=== PATIENT | female | born 1965 | race Caucasian/White ===

== ENCOUNTER 2020-09-06 15:24 | Inpatient (IN) | payer OTHER, SELFPAY ==
[2020-09-06] VITALS (7 sets, daily range): BP systolic 118–135; BP diastolic 77–80; PULSE 18–97; RESP 18–22; TEMP 36.4–36.7; O2SAT 81–97; BMI 36.4
--- NOTE | ~2020-09-06 | XR_ITS ---
EXAMINATION: XR chest 1V portable INDICATION: Hypoxia, chest tube insertion TECHNIQUE: Portable AP chest at 0515 hours COMPARISON: 0409 hours FINDINGS: A second left sided chest tube has been inserted which courses towards the left lung apex t hen curves inferiorly in the medial aspect of the left hemithorax. The previously described left-side d pneumothorax is no longer evident. There is increase in the amount of subcutaneous gas in the left chest wall. Diffuse opacities of the lungs persist without significant change. There is no pleural ef fusion. The endotracheal tube ends 3.3 cm above the eric. The nasogastric tube is in the stomach. A right upper extremity PICC ends with its tip in the distal superior vena cava. There is stable cardi omegaly. IMPRESSION: 1. Second left chest tube insertion with resolution of the previously described pneumothorax. 2. Diffuse lung disease, consistent with pneumonia and/or pulmonary edema and/or acute respiratory di stress syndrome (ARDS). Reviewed, dictated and finalized at location A. BURNER IMPRESSION: 1. Second left chest tube insertion with resolution of the previously described pneumothorax. 2. Diffuse lung disease, consistent with pneumonia and/or pulmonary edema and/o r acute respiratory distress syndrome (ARDS).
--- NOTE | ~2020-09-06 | XR_ITS ---
EXAMINATION: XR chest 1V portable DATE: 09/11/2020 06:23 INDICATION: Respiratory failure. COVID-19 pneumonia. TECHNIQUE: A single frontal view of the chest was obtained. COMPARISON: Chest single view 09/10/2020 FINDINGS: Again seen is elevation of right hemidiaphragm. There is a diffuse interstitial pattern in the lungs. No pleural effusion or pneumothorax. The heart size is normal. A right upper extremity per ipherally inserted central venous catheter (PICC) is seen with tip at the superior cavoatrial junctio n. IMPRESSION: 1. Stable diffuse interstitial pattern in the lungs, consistent with atypical pneumonia versus pulmon eduardo edema versus acute respiratory distress syndrome (ARDS). Reviewed, dictated and finalized at location A. ED MILK MASHER IMPRESSION: 1. Stable diffuse interstitial pattern in the lungs, consistent with atypical p neumonia versus pulmonary edema versus acute respiratory distress syndrome (BLAYNE S).
--- NOTE | ~2020-09-06 | XR_ITS ---
EXAMINATION: XR chest 1V portable EXAM DATE: 09/15/2020 02:02 INDICATION: Respiratory failure. COVID-19 TECHNIQUE: Portable AP frontal chest x-ray was obtained. Comparison is made to prior examination from 09/14/2020. FINDINGS: Endotracheal tube tip is 4 centimeters above the eric (ideal range is between 2 to 5 cm). Feeding tube is in position. There is a right-sided PICC line in position. Moderate-sized left-sided pneumothorax. Moderate amount of bilateral ill-defined acute airspace disea se. There are no sizable pleural effusions. Cardiomediastinal silhouette is normal. The bones and soft tissues are unremarkable. Compared to previous examination, the pneumothorax has developed. The airspace disease appears unchan ged. IMPRESSION: 1. Development of moderate size left-sided pneumothorax. 2. Moderate amount of ill-defined acute airspace disease, clinical correlation. STAT RAD radiologist phoned, discussed this case with clinician as per documentation in their report, which was faxed and scanned into PACS with this exam. Reviewed, dictated and finalized at location A. HERIZATION CREW LEADER IMPRESSION: 1. Development of moderate size left-sided pneumothorax. 2. Moderate amount of ill-defined acute airspace disease, clinical correlation . STAT RAD radiologist phoned, discussed this case with clinician as per document ation in their report, which was faxed and scanned into PACS with this exam.
--- NOTE | ~2020-09-06 | XR_ITS ---
EXAMINATION: XR chest 1V portable EXAM DATE: 09/13/2020 06:21 INDICATION: Respiratory failure. TECHNIQUE: Portable AP frontal chest x-ray was obtained. Comparison is made to prior examination from 09/12/2020, 09/11/2020. FINDINGS: Endotracheal tube tip is 2 centimeters above the eric (ideal range is between 2 to 5 cm). There is a right-sided PICC line with tip projecting over the cavoatrial junction. There is a nasoga stric tube seen with tip collimated off the study, but below the left hemidiaphragm. There is segmental left lower lobe retrocardiac consolidation. Less well-defined opacities and lower lung zones bilaterally. Likely acute process, clinical correlation. There are no sizable pleural eff usions. There is no pneumothorax suspected. Cardiomediastinal silhouette is normal. The bones an d soft tissues are unremarkable. There is no significant interval change compared to prior exam. IMPRESSION: 1. Tubes, line in position. 2. Lower lobe ill-defined opacities, probably edema and/or pneumonia. PHALOGRAPHER Reviewed, dictated and finalized at location A.
--- NOTE | ~2020-09-06 | XR_ITS ---
EXAMINATION: XR abdomen NG/feed tube insert EXAM DATE: 09/14/2020 13:05 INDICATION: og tube insertion . TECHNIQUE: Frontal projection(s) of the abdomen for interpretation. Comparison is made to prior exami nation from 09/11/2020. FINDINGS: Feeding tube is in position. The upper abdominal bowel gas pattern is nonobstructive. There is no organomegaly. IMPRESSION: Feeding tube in position. Reviewed, dictated and finalized at location A. EY MORTISER OPERATOR IMPRESSION: Feeding tube in position.
--- NOTE | ~2020-09-06 | XR_ITS ---
EXAMINATION: XR chest 1V portable INDICATION: Respiratory failure TECHNIQUE: Portable AP chest at 0525 hours COMPARISON: 09/08/2020 FINDINGS: Diffuse bilateral patchy opacities throughout all lung zones persist without significant ch juliet. A right upper extremity PICC ends with its tip in the distal superior vena cava. The cardiomedi astinal silhouette is normal. There is no pleural effusion or pneumothorax. IMPRESSION: 1. Stable diffuse lung disease, consistent with pneumonia and/or pulmonary edema and/or acute respira tory distress syndrome (ARDS). Reviewed, dictated and finalized at location A. ST PRODUCTS GATHERER IMPRESSION: 1. Stable diffuse lung disease, consistent with pneumonia and/or pulmonary luís a and/or acute respiratory distress syndrome (ARDS).
--- NOTE | ~2020-09-06 | XR_ITS ---
EXAMINATION: XR chest 1V portable DATE: 09/06/2020 16:01 INDICATION: COVID 19 positive presenting with shortness of breath and chest pain TECHNIQUE: frontal view of the chest was obtained. COMPARISON: Chest radiograph dated 07/06/2015 FINDINGS: Elevation of the right hemidiaphragm. Patchy airspace opacities throughout the right lung and in the left mid and lower lung zones. No pleural effusion or pneumothorax. The cardiomediastinal silhouette is normal. Visualized bones and soft tissues are unremarkable. IMPRESSION: 1. Patchy bilateral airspace disease consistent with pneumonia with differential including pulmonary edema. Reviewed, dictated and finalized at location A. ATIENT SCHEDULER IMPRESSION: 1. Patchy bilateral airspace disease consistent with pneumonia with differentia l including pulmonary edema.
--- NOTE | ~2020-09-06 | XR_ITS ---
EXAMINATION: XR chest 1V portable EXAM DATE: 09/12/2020 06:21 INDICATION: Respiratory failure. TECHNIQUE: Portable AP frontal chest x-ray was obtained. Comparison is made to prior examination from 09/11/2020. FINDINGS: Endotracheal tube tip is 1.8 centimeters above the eric (ideal range is between 2 to 5 cm ). There is a right-sided PICC line with tip projecting over the cavoatrial junction. There is segmental left lower lobe retrocardiac consolidation. Less well-defined opacities and lower lung zones bilaterally. Likely acute process, clinical correlation. There are no sizable pleural eff usions. There is no pneumothorax suspected. The cardiomediastinal silhouette is prominent but mag nified on this AP technique. The bones and soft tissues are unremarkable. There is no significant interval change compared to prior exam. IMPRESSION: 1. ET tube 1.8 cm above eric. 2. Left lower lobe consolidation, other basilar groundglass opacities. Probably edema and/or pneumon ia. Reviewed, dictated and finalized at location A. PASTER IMPRESSION: 1. ET tube 1.8 cm above eric. 2. Left lower lobe consolidation, other basilar groundglass opacities. Probabl y edema and/or pneumonia.
--- NOTE | ~2020-09-06 | XR_ITS ---
EXAMINATION: XR chest-chest tube insert/pos EXAM DATE: 09/15/2020 03:57 INDICATION: Chest Tube Insertion . COVID-19 pneumonia. Respiratory failure. TECHNIQUE: Portable AP frontal chest x-ray was obtained. Comparison is made to prior examination from 09/15, 09/14/2020. FINDINGS: There is a left-sided chest tube. Endotracheal tube tip is 4 centimeters above the eric ( ideal range is between 2 to 5 cm). Feeding tube is in position. There is a right-sided PICC line in position. Moderate amount of bilateral ill-defined acute airspace disease. There is no pneumothorax suspected. There are no sizable pleural effusions. Cardiomediastinal silhouette is normal. The bones and so ft tissues are unremarkable. Compared to previous examination, chest tube has been inserted and the pneumothorax has resolved. The re is gas in the left axilla. Mild progression in the airspace disease of the left lung which could b e progression of pneumonia or some superimposed atelectasis. IMPRESSION: 1. Resolution of left pneumothorax following chest tube insertion. 2. Moderate amount of ill-defined acute airspace disease, clinical correlation. Reviewed, dictated and finalized at location A. AR CARE TECHNICIAN IMPRESSION: 1. Resolution of left pneumothorax following chest tube insertion. 2. Moderate amount of ill-defined acute airspace disease, clinical correlation .
--- NOTE | ~2020-09-06 | XR_ITS ---
EXAMINATION: XR chest 1V portable INDICATION: Respiratory failure TECHNIQUE: Portable AP chest at 0549 hours COMPARISON: 09/09/2020 FINDINGS: Patchy opacities persist throughout all lung zones without significant change. A right uppe r extremity PICC ends with its tip in the distal superior vena cava. There is unchanged mild elevatio n of the left hemidiaphragm. The cardiomediastinal silhouette is stable. No pleural effusion or pneum othorax is identified. IMPRESSION: 1. Stable diffuse lung disease, consistent with pneumonia and/or pulmonary edema and/or acute respira tory distress syndrome (ARDS). Reviewed, dictated and finalized at location A. UATE CIVIL ENGINEER IMPRESSION: 1. Stable diffuse lung disease, consistent with pneumonia and/or pulmonary luís a and/or acute respiratory distress syndrome (ARDS).
--- NOTE | ~2020-09-06 | US_ITS ---
EXAMINATION: US right upper quadrant EXAM DATE: 09/07/2020 10:59 INDICATION: Elevated liver enzymes. TECHNIQUE: Multiple grayscale and Doppler images of the abdomen right upper quadrant were obtained (b y a technologist who performed the scan) and subsequently reviewed. There is no prior study for jonathan rogers. FINDINGS: The pancreatic head and body are normal in appearance. The pancreatic tail is not visualized. There is echogenic liver parenchyma, hepatic steatosis. There are no focal liver lesions identified. Th ere is no evidence of intrahepatic biliary duct dilation. Portal venous flow was seen in the hepatop edal, normal direction and has normal Doppler waveform. No right-sided hydronephrosis. Common bile duct measures 3 mm, which is normal. The gallbladder wall is normal in thickness, with ex pected amount of distention. No sonographic evidence of pericholecystic fluid. There is no cholelit hiases. Technologist performing exam reports patient did not demonstrate sonographic Laura's sign. Please note that this sign is less reliable in patients who have received pain medication. IMPRESSION: 1. Hepatic steatosis. Reviewed, dictated and finalized at location B. GRAPHER IMPRESSION: 1. Hepatic steatosis.
--- NOTE | ~2020-09-06 | XR_ITS ---
EXAMINATION: XR chest 1V portable INDICATION: New left chest tube placement TECHNIQUE: Portable AP chest at 0409 hours COMPARISON: 09/16/2020 FINDINGS: A left chest tube is seen with its tip coursing towards the left lung apex. A moderate size d left pneumothorax is present. There are diffuse interstitial and airspace opacities throughout the lungs which have not significantly changed. No pleural effusion is identified. The endotracheal tube ends 3.5 cm above the eric. The nasogastric tube is in the stomach. A right upper extremity PICC en ds with its tip in the midsuperior vena cava. Subcutaneous gas in the left chest wall is consistent w ith chest tube insertion. IMPRESSION: 1. Moderate-sized left pneumothorax. Additional chest tube has been inserted at the time of interpret ation. 2. Diffuse lung disease, consistent with pneumonia and/or pulmonary edema and/or acute respiratory di stress syndrome (ARDS). Reviewed, dictated and finalized at location A. RIOR DESIGN PROFESSOR IMPRESSION: 1. Moderate-sized left pneumothorax. Additional chest tube has been inserted at the time of interpretation. 2. Diffuse lung disease, consistent with pneumonia and/or pulmonary edema and/o r acute respiratory distress syndrome (ARDS).
--- NOTE | ~2020-09-06 | XR_ITS ---
EXAMINATION: XR chest 1V portable EXAM DATE: 09/16/2020 06:37 INDICATION: COVID-19 pneumonia. Respiratory failure. TECHNIQUE: Portable AP frontal chest x-ray was obtained. Comparison is made to prior examination from 09/15, 09/14/2020. FINDINGS: There is a left-sided chest tube without pleural reflection, no evidence of pneumothorax on this portable image. Endotracheal tube tip is 3 centimeters above the eric (ideal range is between 2 to 5 cm). There is a nasogastric tube seen with tip collimated off the study, but below the left hemidiaphragm. There is a right-sided PICC line in position. Moderate amount of bilateral ill-defined acute airspace disease. There are no sizable pleural effus ions. Cardiomediastinal silhouette is normal. The bones and soft tissues are unremarkable. Compared to prior study, there may be slight retraction of the left-sided chest tube. Airspace diseas e looks unchanged. IMPRESSION: 1. Probable slight retraction of chest tube, side port still overlying pleural cavity. No evidence p neumothorax. 2. Moderate amount of ill-defined acute airspace disease, clinical correlation. Reviewed, dictated and finalized at location A. ISION JIG GRINDER IMPRESSION: 1. Probable slight retraction of chest tube, side port still overlying pleural cavity. No evidence pneumothorax. 2. Moderate amount of ill-defined acute airspace disease, clinical correlation .
--- NOTE | ~2020-09-06 | XR_ITS ---
EXAMINATION: XR chest 1V portable INDICATION: Respiratory failure TECHNIQUE: Portable AP chest at 0553 hours COMPARISON: 09/06/2020 FINDINGS: There are patchy opacities throughout all lung zones without significant change. The cardio mediastinal silhouette is stable. There is no pleural effusion or pneumothorax. A right upper extremi ty PICC has been inserted which ends with its tip in the distal superior vena cava. IMPRESSION: 1. Stable diffuse lung disease, consistent with pneumonia and/or pulmonary edema and/or acute respira tory distress syndrome (ARDS). Reviewed, dictated and finalized at location A. ITY TECHNICIAN FIBERGLASS IMPRESSION: 1. Stable diffuse lung disease, consistent with pneumonia and/or pulmonary luís a and/or acute respiratory distress syndrome (ARDS).
--- NOTE | ~2020-09-06 | XR_ITS ---
EXAMINATION: XR chest ET placement EXAM DATE: 09/14/2020 13:05 INDICATION: reintubation . Respiratory failure. TECHNIQUE: Portable AP frontal chest x-ray was obtained. Comparison is made to prior examination from earlier same date. FINDINGS: Endotracheal tube tip is 3 centimeters above the eric (ideal range is between 2 to 5 cm). There is a right-sided PICC line with tip projecting over the cavoatrial junction. There is a nasoga stric tube seen with tip collimated off the study, but below the left hemidiaphragm. There is segmental left lower lobe retrocardiac consolidation. Less well-defined opacities and lower lung zones bilaterally. Likely acute process, clinical correlation. There are no sizable pleural eff usions. There is no pneumothorax suspected. Cardiomediastinal silhouette is normal. The bones an d soft tissues are unremarkable. There is no significant interval change compared to prior exam. IMPRESSION: 1. Tubes, line in position. 2. Bilateral edema and/or pneumonia. ORATION PILOT Reviewed, dictated and finalized at location A.
--- NOTE | ~2020-09-06 | XR_ITS ---
EXAMINATION: XR chest 1V portable EXAM DATE: 09/14/2020 06:30 INDICATION: Respiratory failure. TECHNIQUE: Portable AP frontal chest x-ray was obtained. Comparison is made to prior examination from 09/13, 09/12/2020, 09/11/2020. FINDINGS: Endotracheal tube tip is 2-3 centimeters above the eric (ideal range is between 2 to 5 cm ). There is a right-sided PICC line with tip projecting over the cavoatrial junction. There is a naso gastric tube seen with tip collimated off the study, but below the left hemidiaphragm. There is segmental left lower lobe retrocardiac consolidation. Less well-defined opacities and lower lung zones bilaterally. Likely acute process, clinical correlation. There are no sizable pleural eff usions. There is no pneumothorax suspected. Cardiomediastinal silhouette is normal. The bones an d soft tissues are unremarkable. There is no significant interval change compared to prior exam. IMPRESSION: 1. Tubes, line in position. 2. Bilateral edema and/or pneumonia. URE RELAMPER Reviewed, dictated and finalized at location A.
--- NOTE | ~2020-09-06 | XR_ITS ---
EXAMINATION: XR abdomen NG/feed tube insert DATE: 09/11/2020 08:56 INDICATION: Orogastric tube placement. TECHNIQUE: A semiupright view of the abdomen was obtained. COMPARISON: None. FINDINGS: The lower abdomen is excluded. There are no dilated loops of bowel. The nasogastric tube ti p is in the stomach. A right upper extremity peripherally inserted central venous catheter (PICC) is seen with tip at the superior cavoatrial junction. IMPRESSION: 1. Nasogastric tube tip in the stomach. Reviewed, dictated and finalized at location A. NEHOUSE BRAKEMAN
--- NOTE | ~2020-09-06 | XR_ITS ---
EXAMINATION: XR chest ET placement DATE: 09/11/2020 08:56 INDICATION: Intubation. TECHNIQUE: A single frontal view of the chest was obtained. COMPARISON: Chest single view 09/11/2020 at 5:47 AM FINDINGS: There is a diffuse interstitial pattern in the lungs. There are worsened airspace opacities at left lung base. No pleural effusion or pneumothorax. The heart size is normal. The endotracheal t ube tip is 1.8 cm above the eric. The nasogastric tube tip is in the stomach. A right upper extremi ty peripherally inserted central venous catheter (PICC) is seen with tip at the superior cavoatrial j unction. IMPRESSION: 1. Diffuse lung disease with worsening at left lung base, consistent with pneumonia versus pulmonary edema versus acute respiratory distress syndrome (ARDS). Reviewed, dictated and finalized at location A. NATAL INSTRUCTOR IMPRESSION: 1. Diffuse lung disease with worsening at left lung base, consistent with pneum onia versus pulmonary edema versus acute respiratory distress syndrome (ARDS).
--- NOTE | 2020-09-06 15:36 | ECG_ITS ---
Measurements Intervals [place] Rate: 93 P: 11 ND: 168 QRS: -28 QRSD: 86 T: 17 QT: 330 QTc: 411 Interpretive Statements SINUS RHYTHM POOR R WAVE PROGRESSION, ANTERIOR LEADS BASELINE WANDER- I, II, III, AVL, AVF, V1, V6 BORDERLINE ECG Electronically Signed On 09-06-2020 16:24:49 FURNACE ROOM SUPERVISOR by Luís Kim D.O.
[2020-09-06 15:57] LABS: Hematocrit 40.5 % (37.0-47.0); Hemoglobin 13.5 g/dL (12.0-15.0); Red Blood Count 4.59 M/mm3 (4.2-5.4); White Blood Count 5.4 K/mm3 (4.5-10.0)
[2020-09-06 15:58] LABS: Basophils Percent Auto 0.2 % (0.2-1.2); Immature Granulocyte Absolute 0.03 K/mm3 (0.00-0.031); Immature Granulocyte Percent A 0.6 % (0-0.5); Lymphocytes Absolute Auto 1.38 K/mm3 (0.9-3.2); Lymphocytes Percent Auto 25.6 % (18.3-44.2); Mean Corpuscular HGB Conc 33.3 g/dl (32-36); Mean Corpuscular Hemoglobin 29.4 pg (26-34); Mean Corpuscular Volume 88.2 fl (80-100); Mean Platelet Volume 9.3 fl (7.4-10.4); Monocytes Absolute Auto 0.2 K/mm3 (0.1-0.6); Monocytes Percent Auto 3.1 % (2.6-8.5); Neutrophils Absolute Auto 3.8 K/mm3 (1.3-6.7); Neutrophils Percent Auto 70.5 % (45.5-73.1); Platelet Count Result 185 k/mm3 (150-375); Red Cell Distribution Width 13.1 % (11.5-14.5)
--- NOTE | 2020-09-06 16:05 | ED.SOB ---
HPI - SOB/Dyspnea General Chief Complaint: Shortness of Breath/Dyspnea Stated Complaint: chest pain, covid + yesterday Time Seen by Provider: 09/06/20 16:02 Source: patient Mode of arrival: ambulatory Limitations: no limitations History of Present Illness HPI Narrative: Patient is a 55-year-old previously healthy female who presents for evaluation of worsening shortness of breath. Patient states that she became symptomatic 3 days ago, with fever to 103 Fahrenheit, dry cough and shortness of breath. Patient states she works at [employer], no recent Covid exposures that she knows of. Patient had a test performed at a [employer] on Saturday, was made aware of her positive Covid results today. Has had worsening shortness of breath, denies any fever or cough today. Denies loss of taste or smell. States her shortness of breath worsens when she is lying flat. Denies severe myalgias. Patient does not smoke. She denies other medical conditions. Related Data Allergies Allergy/AdvReac Type Severity Reaction Status Date / Time No Known Allergies Allergy Verified 09/06/20 16:41 Review of Systems Review of Systems: Narrative: CONSTITUTIONAL: Reports fever and chills EYES: Denies discharge. ENT: Denies rhinorrhea, congestion, sore throat, or otalgia. CARDIOVASCULAR: Denies current chest pain or edema RESPIRATORY: Denies cough, reports shortness of breath GASTROINTESTINAL: Denies abdominal pain, nausea, vomiting, or diarrhea. GENITOURINARY: Denies dysuria or hematuria. SKIN: Denies rash or itching. MUSCULOSKELETAL: Denies back pain, joint pain, or myalgia. NEUROLOGIC: Denies headache, numbness, or weakness. Exam Narrative: Exam Narrative: GENERAL: Awake, alert, conversant HEAD: Normocephalic, atraumatic. EYES: PERRLA and EOMI. ENT: Nares clear, no rhinorrhea or epistaxis. Mucous membranes moist. NECK: Supple. CHEST: No respiratory distress, breathing even and non labored, oxygen saturations 81% on room air, borderline tachypnea HEART: Regular rate, sinus rhythm ABDOMEN:Non distended, non tender EXTREMITIES: Normal range of motion. No edema. SKIN: Warm, dry, no rash. NEURO:No focal deficits. Alert and oriented x3 Course Vital Signs Vital signs: Vital Signs Temperature 36.6 C 09/06/20 15:40 Pulse Rate 91 09/06/20 15:40 Respiratory Rate 20 09/06/20 15:40 Blood Pressure 135/80 09/06/20 15:40 Pulse Oximetry 81 L 09/06/20 15:40 Temperature 36.7 C 09/06/20 18:44 Pulse Rate 91 09/06/20 18:44 Respiratory Rate 22 H 09/06/20 18:44 Blood Pressure 129/79 09/06/20 18:44 Pulse Oximetry 96 09/06/20 18:44 MDM - SOB/Dyspnea MDM Narrative Medical decision making narrative: Patient with confirmed Covid positive test result, here with worsening dyspnea. At the time of assessment, ABCs are intact, vital signs notable for hypoxemia, 81% on room air. No severe increased work of breathing. Patient is denying current chest pain for me. EKG without acute ischemic changes. Blood pressure and heart rate are stable. Patient does not meet sepsis criteria based on these. No severe leukocytosis. She does have elevation in inflammatory markers. No elevation in troponin. Chest x-ray consistent with Covid, viral pneumonia. Patient given IV dexamethasone per treatment protocol. No anticoagulation given at this time. Patient will be admitted to the medical/surgical floor at this point is not requiring high flow nasal cannula. Patient with guarded prognosis, spoke with hospitalist regarding case, agrees on medsurg placement. Asked to withhold antibiotics given viral pneumonia. Patient admitted in stable condition. Differential Diagnosis Differential diagnosis: Likely acute exacerbation of chronic obstructive airways disease, community acquired pneumonia and pulmonary embolism Medical Records Attestation: I reviewed the patient's medical records. Lab Data Attestation: I reviewed the patient's lab results. Result diag
[2020-09-06 16:08] LABS: Anion Gap 10 mmol/L (8-16); Blood Urea Nitrogen 24 mg/dL (7-17); Carbon Dioxide 24 mmol/L (22-30); Chloride 106 mmol/L (98-107); Estimated CRCL calculation 56 ml/min; Estimated Glomerular Filt Rate 57; Glucose 131 mg/dL (65-105); Potassium 3.6 mmol/L (3.4-5.0); Sodium 140 mmol/L (137-145)
[2020-09-06 16:27] LABS: Alveolar/Arterial O2 Gradient 91.2 mmHg; Base Excess ABG -2.9 mEq/l (+/-2.0); Carboxyhemoglobin 0.8 % THb (0-2.0); Device NASAL CANNULA; Fractional Inspired Oxygen 32 %; HCO3 ABG 21.2 mEq/l (22.0-26.0); Methemoglobin ABG 0.2 %THb (0-1.5); Modified Allen's Test Pass; Oxygen Content ABG 18.6 %vol (16.0-22.0); Oxygen Saturation ABG 97.4 % (95.0-100.0); Oxyhemoglobin 96.1 % THb (90.0-100.0); PCO2 ABG 34.9 mmHg (35.0-45.0); PO2 ABG 96.1 mmHg (80.0-100.0); Reduced Hemoglobin 2.9 %THb (0-5.0); Site Drawn RIGHT RADIAL; Total Hemoglobin 13.7 g/dL (12.0-18.0); pH ABG 7.401 (7.350-7.450)
[2020-09-06 16:29] LABS: INR 0.9; Prothrombin Time 12.4 Seconds (11.1-14.7)
[2020-09-06 16:30] LABS: Lactate Dehydrogenase 1686 U/L (313-618); Partial Thromboplastin Time 32.8 SECONDS (22.3-36.8)
[2020-09-06 16:31] LABS: Lactic Acid Reflex 1.6 mmol/L (0.7-2.1)
[2020-09-06 16:37] LABS: NT Pro B Type Natriuretic Pept 102 PG/ML (5-100); Troponin I < 0.012 ng/mL (0.000-0.034)
[2020-09-06 16:40] LABS: CRP 19.7 mg/dL (<1.0)
--- NOTE | 2020-09-06 19:51 | ADMGEN ---
This patient, Petty Germain, was admitted to [facility] Surg Room 329-01. Patient/family oriented to hospital policies and general routines including ID bracelet, bed and alarms, visiting hours, pain management, procedures, bathroom and other care routines, personal items, smoking policy, room service/diet, and visiting hours. Information on how to activate the Rapid Response Team has been discussed. Patient/Family are encouraged to report perceived risks to care and to ask questions if they do not understand what they are told or what they should do.
--- NOTE | 2020-09-06 20:13 | PM.IMHP ---
H&P: HPI History of Present Illness Date/Time: 09/06/20 20:13 Chief complaint: COVID 19/hypoxic respiratory failure Narrative: Petty Germain is a 55 year old female with past medical history hyperlipidemia and obesity presents to the ED with chief complaint of shortness of breath, fever. History was taken with assistance with hat body inspector service [place]. Symptom onset was 09/02/2020 with T-max 103, dry cough and dyspnea. COVID-19 test positive 09/04/2020 from [employer]. She was trying to manage her fever with Tylenol and ibuprofen at home. She works [employer] and interacts with customers, she also go shopping [employer] and [employer]. does not have any known sick contacts. She lives alone. Her daughter lives in [place]. Patient has seen a PCP year ago, but does not have 1 now. In the ED: Chest x-ray patchy bilateral airspace disease consistent with pneumonia. EKG normal sinus rhythm rate 93. ferritin 1340, LDH 1686, CRP 19.7. patient was 81% on room air and then put on oxygen decreasing 96%. patient admitted to medical floor for acute hypoxic respiratory failure, COVID-19. Review of Systems Review of Systems: Narrative: Constitutional: endorses fever and chills ENT/Mouth: No Hearing Changes, No Ear Pain, No Nasal Congestion, No Sinus Pain, No Hoarseness, No sore throat, No Rhinorrhea, No Swallowing Difficulty Eyes: No Eye Pain, No Redness, No Vision Changes Cardiovascular: No Palpitations, No Dyspnea on Exertion, No Orthopnea, No Claudication, No Edema Respiratory: Endorses dyspnea, dry cough, chest pain associated with cough Gastrointestinal: No Nausea, No Vomiting, No Diarrhea, No Constipation, No Abdominal Pain, No Heartburn, No Hematochezia, No Melena Genitourinary: No Dysuria, No Urinary Frequency, No Hematuria, No Urinary Incontinence, No Urgency Musculoskeletal: No Arthralgias, No Myalgias, No Joint Swelling, No Joint Stiffness, No Back Pain Skin: No Skin Lesions, No Pruritis, No Hair Changes Neuro: No Weakness, No Numbness, No Paresthesias, No Loss of Consciousness, No Syncope, No Dizziness, No Headache Psych: No Anxiety/Panic, No Depression, No Insomnia Heme: No Bruising, No Bleeding Lymph: No Adenopathy Endocrine: No Polyuria, No Polydipsia, No Temperature Intolerance REPLACED BY [facility] Past Medical History Medical History (Updated 09/06/20 @ 20:57 by Beny Morgan DO) Hyperlipidemia Obesity (BMI 30.0-34.9) Family History Family History (Updated 09/06/20 @ 20:58 by Beny Morgan DO) Mother Alcoholism Social History Social History (Updated 09/06/20 @ 20:58 by Beny Morgan DO) Social History: Daughter lives in [facility] Smoking status: Never smoker Alcohol intake: never Substance use: never Living arrangements: alone Occupation/Education: occupation Additional occupation/education comments: works at [employer] Spiritual care concerns: No Meds Home Medications and Allergies Home Medications Medication Instructions Recorded Confirmed Type No Home Medications 09/06/20 09/06/20 History Allergies Allergy/AdvReac Type Severity Reaction Status Date / Time No Known Allergies Allergy Verified 09/06/20 16:41 Vital Signs Vital Signs - 24 hr 09/06/20 15:40 09/06/20 15:43 09/06/20 17:14 Temperature 36.6 C 36.6 C Pulse Rate 91 92 92 Respiratory Rate 20 18 Blood Pressure 135/80 133/77 Pulse Oximetry 81 L 97 09/06/20 18:44 09/06/20 19:25 Temperature 36.7 C Pulse Rate 91 18 L Respiratory Rate 22 H 20 Blood Pressure 129/79 Pulse Oximetry 96 97 Exam Narrative: Exam Narrative: - GENERAL: pleasant obese woman breathing comfortably on 6 L oxygen - EYES: EOMI. Anicteric. - HENT: Moist mucous membranes. No scleral icterus. - LUNGS: coarse lung sounds throughout, slightly diminished, no wheezing - CARDIOVASCULAR: Regular rate and rhythm. No murmur. No JVD. - ABDOMEN: Soft, non-tender and non-distended. No palpable masses. -
[2020-09-06 22:29] LABS: Alanine Aminotransferase 164 U/L (4-35)
[2020-09-06] MEDS: REMDESIVIR 200 MG/NS 250 ML 200 MG/250 ML BAG 250 MG IVPB (23:14)
[2020-09-06] MEDS: ENOXAPARIN 40 MG/0.4 ML SYRINGE SUB-Q (23:14)
[2020-09-07] VITALS (22 sets, daily range): BP systolic 107–150; BP diastolic 70–96; PULSE 66–90; RESP 18–35; TEMP 36–38; O2SAT 80–97
[2020-09-07 01:30] LABS: Alveolar/Arterial O2 Gradient 633.3 mmHg; Base Excess ABG -2.6 mEq/l (+/-2.0); Fractional Inspired Oxygen 100 %; HCO3 ABG 21.1 mEq/l (22.0-26.0); Oxyhemoglobin 81.9 % THb (90.0-100.0); PCO2 ABG 33.8 mmHg (35.0-45.0); PO2 FiO2 Ratio Arterial Blood 0.46 %; Total Hemoglobin 13.9 g/dL (12.0-18.0); pH ABG 7.414 (7.350-7.450)
[2020-09-07 01:36] LABS: Device HIGH FLOW NASAL CANN; Modified Allen's Test Pass; PO2 ABG 45.9 mmHg (80.0-100.0); Site Drawn RIGHT RADIAL
--- NOTE | 2020-09-07 01:54 | PC.NURSE ---
This patient, Petty Germain, was received from [ [facility]] on 09/07/20 at 0145. Patient/family oriented to unit policies and routines
[2020-09-07 03:57] LABS: Hematocrit 39.1 % (37.0-47.0); Hemoglobin 13.1 g/dL (12.0-15.0); Mean Corpuscular HGB Conc 33.5 g/dl (32-36); Mean Corpuscular Hemoglobin 29.8 pg (26-34); Mean Corpuscular Volume 88.9 fl (80-100); Mean Platelet Volume 9.9 fl (7.4-10.4); Platelet Count Result 196 k/mm3 (150-375); Red Cell Distribution Width 12.9 % (11.5-14.5); White Blood Count 4.8 K/mm3 (4.5-10.0)
[2020-09-07 04:16] LABS: Alanine Aminotransferase 159 U/L (4-35); Anion Gap 7 mmol/L (8-16); Blood Urea Nitrogen 22 mg/dL (7-17); Calcium 8.9 mg/dL (8.4-10.2); Carbon Dioxide 28 mmol/L (22-30); Chloride 107 mmol/L (98-107); Estimated CRCL calculation 80 ml/min; Estimated Glomerular Filt Rate > 60; Glucose 178 mg/dL (65-105); Potassium 4.4 mmol/L (3.4-5.0); Sodium 142 mmol/L (137-145)
[2020-09-07] MEDS: ACETAMINOPHEN 325 MG TABLET 650 MG PO ×2 (04:57→20:22)
--- NOTE | 2020-09-07 08:39 | WPDCNINT ---
Assessment and Plan Assessment and plan (1) Acute respiratory disease due to COVID-19 virus: Code(s): U07.1 - COVID-19; J06.9 - Acute upper respiratory infection, unspecified Status: Acute Assessment and Plan: acute hypoxic respiratory failure secondary to COVID-19 SARS-CoV-2 PCR positive from [facility] 09/03/2020 patient currently on 90% FiO2 and 25 L flow high-flow nasal cannula. I will try to switch patient to AirVo to provide higher flow. patient maintaining saturation and not in respiratory distress at this time but has deteriorated pretty quickly since admission and is at high risk of getting further worse and getting intubated Patient is in Airborne, Droplet and Contact Isolation Continue Remdesivir - patient's ALT is elevated which could be secondary to fatty liver. Closely monitor levels Continue dexamethasone Convalscent plasma is ordered BNP unremarkable Monitor inflammatory markers Up in chair and incentive spirometry to minimize atelectasis Bronchodilators Pt is on zinc, vitamin c and d (2) Hyperlipidemia: Code(s): E78.5 - Hyperlipidemia, unspecified Status: Acute Assessment and Plan: hold statin due to elevated liver enzymes (3) Elevated liver enzymes: Code(s): R74.8 - Abnormal levels of other serum enzymes Status: Acute Assessment and Plan: most likely secondary to fatty liver from obesity check right upper quadrant ultrasound Additional Plan Diet: Regular DVT prophylaxis: intermediate does lovenox 40mg BID for COVID 19. Check D-dimer Code status: patient wishes to be Full code. I tried calling patient's daughter on both phone numbers listed in the chart and left message on voicemail Total Critical Care Time - 30 minutes Due to a high probability of clinically significant, life threatening deterioration, the patient required my highest level of preparedness to intervene emergently and I personally spent this critical care time directly and personally managing the patient. This critical care time included obtaining a history; examining the patient; pulse oximetry; ordering and review of studies; arranging urgent treatment with development of a management plan; evaluation of patient's response to treatment; frequent reassessment; and discussions with other providers. It was exclusive of separately billable procedures and treating other patients and teaching time. Please see Assessment and Plan section and the rest of the note for further information on patient assessment and treatment Senior Engineering Manager Consult Note Consult date: 09/07/20 Time Seen: 08:00 HPI: Petty Germain is a 55 year old female with history of hyperlipidemia who presented to ED yesterday for evaluation of worsening shortness of breath. Patient states that she became symptomatic 3 days ago, with fever , dry cough and shortness of breath. Patient states she works at [employer], no recent Covid exposures that she knows of. Patient had a test performed at [facility] on 09/03, was made aware of her positive Covid results today which was positive. Has had worsening shortness of breath, denies any fever or cough today. Denies loss of taste or smell. Chest x-ray showed diffuse bilateral airspace disease and she had significantly elevated CRP ferritin and LDH levels patient was admitted to floor yesterday evening and was initially on nasal can but overnight her oxygen requirement increased and she had to be transferred ICU. This morning patient is on high-flow nasal can with 90% FiO2 and 25 L flow. she does admit to having shortness of breath and occasional cough but denies any other complaints at this time. She states she is feeling better this morning as compared to last night. Patient denies fever, chest pain, nausea, vomiting, abdominal pain, diarrhea, headache or constipation. Review of Systems Review of Systems: All systems reviewed & are unremarkable except as noted in
[2020-09-07] MEDS: CHOLECALCIFEROL 1,000 UNITS TABLET 4000 UNITS PO (08:42)
[2020-09-07] MEDS: ASCORBIC ACID 500 MG TABLET PO (08:42)
[2020-09-07] MEDS: ZINC SULFATE 220 MG CAPSULE PO (08:42)
[2020-09-07] MEDS: DEXAMETHASONE 2 MG TABLET 6 MG PO (08:43)
[2020-09-07] MEDS: ALBUTEROL SULFATE (*SP) AEROSOL 1 PUFF 2 PUFF INHALATION ×5 (09:00→20:45)
[2020-09-07] MEDS: ENOXAPARIN 40 MG/0.4 ML SYRINGE SUB-Q ×2 (10:00→20:24)
[2020-09-07] MEDS: FAMOTIDINE 20 MG TABLET PO ×2 (10:00→20:24)
[2020-09-07] MEDS: TUBING, BLOOD PLUM PUMP TUBING 1 EACH XX (10:55)
[2020-09-07] MEDS: SODIUM CHLORIDE 0.9% IV 250 ML 30 ML IV CONT (10:55)
[2020-09-07] MEDS: LIDOCAINE HCL 1% PF INJ 5 ML VIAL INFILTRATE (12:00)
[2020-09-07] MEDS: CENTRAL LINE FLUSH 10 ML IV PUSH ×2 (13:20→20:25)
[2020-09-07] MEDS: FUROSEMIDE INJ 40 MG/4 ML VIAL 20 MG IV PUSH (13:20)
--- NOTE | 2020-09-07 16:34 | PM.IMPN ---
Progress Note: A&P Assessment and Plan (1) COVID-19: Code(s): U07.1 - COVID-19 Status: Acute Assessment and Plan: -Started on iv Remdesivir, dexamethasone 6mg daily - MDI: albuterol - incentive spirometry - starting supplements zinc, vitamin c and d (2) Respiratory failure, acute: Qualifiers: Respiratory failure complication: hypoxia Qualified Code(s): J96.01 - Acute respiratory failure with hypoxia Code(s): J96.00 - Acute respiratory failure, unspecified whether with hypoxia or hypercapnia Status: Acute Assessment and Plan: High flow oxygen continue to watch for improvement in respiratory status (3) Obesity (BMI 30.0-34.9): Code(s): E66.9 - Obesity, unspecified Status: Chronic Assessment and Plan: Adviced to loose weight Subjective Date/time seen: 09/07/20 16:34 Interval history: Petty Germain is a 55 year old female with past medical history hyperlipidemia and obesity presents to the ED with chief complaint of shortness of breath, fever. COVID-19 test positive 09/04/2020 from [facility] for respiratory failure on iv remdesivir and oral steroids. Pt speaks Armenian. Review of Systems Review of Systems: All systems reviewed & are unremarkable except as noted in HPI and below Exam Narrative: Exam Narrative: Pleasant obese woman in mild distress on high flow oxygen Objective Data Vital Signs Vital Signs: Vital Signs - 24 hr 09/06/20 17:14 09/06/20 18:44 09/06/20 19:25 Temperature 36.6 C 36.7 C Pulse Rate 92 91 18 L Respiratory Rate 18 22 H 20 Blood Pressure 133/77 129/79 Pulse Oximetry 97 96 97 09/06/20 19:50 09/06/20 20:00 09/07/20 00:00 Temperature 36.4 C 37.6 C H Pulse Rate 97 85 Respiratory Rate 20 20 Blood Pressure 118/80 121/70 Pulse Oximetry 90 91 88 L 09/07/20 01:45 09/07/20 02:00 09/07/20 02:05 Temperature 37.3 C Pulse Rate 90 90 Respiratory Rate 35 H 27 H Blood Pressure 144/79 H 135/78 Pulse Oximetry 80 L 89 L 90 09/07/20 04:00 09/07/20 04:57 09/07/20 05:57 Temperature 38.0 C H 38.0 C H 37.9 C H Pulse Rate 85 Respiratory Rate 29 H Blood Pressure 124/76 Pulse Oximetry 91 09/07/20 06:00 09/07/20 08:00 09/07/20 09:00 Temperature 37.9 C H 36.9 C Pulse Rate 82 78 88 Respiratory Rate 18 22 H 20 Blood Pressure 120/72 107/75 Pulse Oximetry 93 91 90 09/07/20 10:00 09/07/20 10:50 09/07/20 11:03 Temperature 36.0 C L 36.6 C Pulse Rate 79 72 78 Respiratory Rate 20 32 H 30 H Blood Pressure 139/83 139/83 129/96 H Pulse Oximetry 95 91 91 09/07/20 11:05 09/07/20 12:00 09/07/20 14:00 Temperature 36.6 C 36.0 C L Pulse Rate 70 86 81 Respiratory Rate 30 H 32 H 24 H Blood Pressure 129/96 H 149/87 H 131/92 H Pulse Oximetry 91 93 94 09/07/20 16:00 Temperature 36.1 C L Pulse Rate 85 Respiratory Rate 31 H Blood Pressure 150/87 H Pulse Oximetry 92 Intake/Output Intake/Output: Intake & Output 09/04/20 09/05/20 09/06/20 09/07/20 23:59 23:59 23:59 23:59 Intake Total 625 Output Total 800 Balance -175 Meds/Results Medications: Active Medications Generic Name Dose Route Start Last Admin Trade Name Freq PRN Reason Stop Dose Admin Acetaminophen 650 mg 09/06/20 17:06 09/07/20 04:57 Acetaminophen 325 Mg Tablet PO 650 mg Q4H PRN Administration Mild Pain (1-3) or Fever Albuterol 2 puff 09/06/20 20:00 09/07/20 11:45 Albuterol Sulfate (*Sp) Aerosol 1 Puff INHALATION 2 puff QIDRT DOLORES Administration Albuterol 2 puff 09/07/20 00:33 Albuterol Sulfate (*Sp) Aerosol 1 Puff INHALATION QIDRT PRN Shortness Of Breath Ascorbic Acid 500 mg 09/07/20 09:00 09/07/20 08:42 Ascorbic Acid 500 Mg Tablet PO 500 mg DAILY DOLORES Administration Dexamethasone 6 mg 09/07/20 08:00 09/07/20 08:43 Dexamethasone 2 Mg Tablet PO 09/16/20 08:01 6 mg DAILY@0800 DOLORES Administration Enoxaparin Sodium 40 mg 09/06/20
[2020-09-07] MEDS: ALBUTEROL SULFATE (*SP) INHALER 1 PUFF (17:46)
[2020-09-07] MEDS: guaiFENesin/DEXTROMETHORPHAN 10 ML UDC PO (20:24)
[2020-09-07] MEDS: REMDESIVIR 100 MG/NS 250 ML 100 MG/250 ML BAG 250 MG IVPB (21:30)
[2020-09-08] VITALS (18 sets, daily range): BP systolic 114–147; BP diastolic 69–89; PULSE 55–77; RESP 18–28; TEMP 36.4–37.2; O2SAT 90–99
[2020-09-08 06:25] LABS: Hematocrit 37.7 % (37.0-47.0); Hemoglobin 12.6 g/dL (12.0-15.0); Mean Corpuscular HGB Conc 33.4 g/dl (32-36); Mean Corpuscular Hemoglobin 29.2 pg (26-34); Mean Corpuscular Volume 87.3 fl (80-100); Mean Platelet Volume 9.8 fl (7.4-10.4); Platelet Count Result 290 k/mm3 (150-375); Red Blood Count 4.32 M/mm3 (4.2-5.4); Red Cell Distribution Width 13.1 % (11.5-14.5); White Blood Count 11.2 K/mm3 (4.5-10.0)
[2020-09-08 06:37] LABS: Alanine Aminotransferase 109 U/L (4-35); Albumin Level 3.6 g/dL (3.5-5.1); Alkaline Phosphatase 70 U/L (38-126); Anion Gap 10 mmol/L (8-16); Aspartate Amino Transferase 81 U/L (14-36); Bilirubin,Total 0.4 mg/dL (0.2-1.3); Blood Urea Nitrogen 30 mg/dL (7-17); Calcium 8.9 mg/dL (8.4-10.2); Carbon Dioxide 28 mmol/L (22-30); Chloride 105 mmol/L (98-107); D Dimer 0.66 ug/mL (<0.48); Estimated CRCL calculation 80 ml/min; Estimated Glomerular Filt Rate > 60; Glucose 173 mg/dL (65-105); Magnesium 2.4 mg/dL (1.6-2.3); Potassium 3.6 mmol/L (3.4-5.0); Sodium 143 mmol/L (137-145)
[2020-09-08] MEDS: CENTRAL LINE FLUSH 10 ML IV PUSH ×3 (08:20→20:58)
[2020-09-08] MEDS: ZINC SULFATE 220 MG CAPSULE PO (08:20)
[2020-09-08] MEDS: CHOLECALCIFEROL 1,000 UNITS TABLET 4000 UNITS PO (08:20)
[2020-09-08] MEDS: ASCORBIC ACID 500 MG TABLET PO (08:20)
[2020-09-08] MEDS: FAMOTIDINE 20 MG TABLET PO ×2 (08:20→20:57)
[2020-09-08] MEDS: DEXAMETHASONE 2 MG TABLET 6 MG PO (08:20)
[2020-09-08] MEDS: ENOXAPARIN 40 MG/0.4 ML SYRINGE SUB-Q ×2 (08:20→20:57)
[2020-09-08] MEDS: ALBUTEROL SULFATE (*SP) AEROSOL 1 PUFF 2 PUFF INHALATION ×4 (08:45→21:10)
--- NOTE | 2020-09-08 13:22 | WPDINTPN ---
Progress Note: A&P Assessment and Plan (1) Acute respiratory disease due to COVID-19 virus: Code(s): U07.1 - COVID-19; J06.9 - Acute upper respiratory infection, unspecified Status: Acute Assessment and Plan: acute hypoxic respiratory failure secondary to COVID-19 SARS-CoV-2 PCR positive from [facility] 09/03/2020 patient currently on 90% FiO2 and 60 L flow AirVo and supplemental non-rebreather mask. patient maintaining saturation in mid 90s and not in respiratory distress at this time but but may still deteriorate and need intubation Patient is in Airborne, Droplet and Contact Isolation Continue Remdesivir - patient's ALT is elevated which could be secondary to fatty liver. Closely monitor levels as they are decreasing Continue dexamethasone Convalscent plasma 1 unit given 09/07 with Lasix BNP unremarkable Monitor inflammatory markers Up in chair and incentive spirometry to minimize atelectasis Bronchodilators Pt is on zinc, vitamin c and d Encouraged pt to try proning (2) Hyperlipidemia: Code(s): E78.5 - Hyperlipidemia, unspecified Status: Acute Assessment and Plan: hold statin due to elevated liver enzymes (3) Elevated liver enzymes: Code(s): R74.8 - Abnormal levels of other serum enzymes Status: Acute Assessment and Plan: most likely secondary to fatty liver from obesity Right upper quadrant ultrasound showed hepatic steatosis levels improving Additional Plan Diet: Advance DVT prophylaxis: intermediate does lovenox 40mg BID for COVID 19. Code status: patient wishes to be Full code. Total Critical Care Time - 33 minutes Due to a high probability of clinically significant, life threatening deterioration, the patient required my highest level of preparedness to intervene emergently and I personally spent this critical care time directly and personally managing the patient. This critical care time included obtaining a history; examining the patient; pulse oximetry; ordering and review of studies; arranging urgent treatment with development of a management plan; evaluation of patient's response to treatment; frequent reassessment; and discussions with other providers. It was exclusive of separately billable procedures and treating other patients and teaching time. Please see Assessment and Plan section and the rest of the note for further information on patient assessment and treatment Subjective Date/time seen: 09/08/20 13:22 Overnight events reviewed. Afebrile Continues to be on High-flow nasal cannula and non-rebreather mask. She did sit in a chair yesterday She states occasional shortness of breath episodes and also pain in the chest with deep breathing or coughing. Complains of coughing intermittently Vitals acceptable Review of Systems Review of Systems: All systems reviewed & are unremarkable except as noted in HPI and below (HPI) Exam Narrative: Exam Narrative: General: Pt is alert awake and in NAD Lungs/Chest: Trachea central Clear BS B/L, few basilar crackles, no wheezing, no respiratory distress or use of accessory muscles Cardiac: RRR. Normal S1 S2. No murmurs Circulation: Pedal pulses are intact and symmetrical. Abdomen: Normal bowel sounds.. obese Soft. NT. ND. Extremities: No clubbing, cyanosis or edema. Warm : Niño in place Neurologic: Follows commands. Moves all 4 extremities PERRL Skin: No Rash Objective Data Vital Signs Vital Signs: Vital Signs - 24 hr 09/07/20 14:00 09/07/20 16:00 09/07/20 18:00 Temperature 36.1 C L Pulse Rate 81 89 78 Respiratory Rate 24 H 31 H 19 Blood Pressure 131/92 H 150/87 H 120/81 Pulse Oximetry 94 93 97 09/07/20 20:00 09/07/20 20:22 09/07/20 21:02 Temperature 37.8 C H 37.8 C H Pulse Rate 77 76 Respiratory Rate 26 H 18 Blood Pressure 122/78 Pulse Oximetry 92 90 09/07/20 22:00 09/08/20 00:00 09/08/20 02:00 Temperature 37.1 C 36.7 C Pulse Rate 76 67 66 Resp
--- NOTE | 2020-09-08 15:43 | PM.IMPN ---
Progress Note: A&P Assessment and Plan (1) COVID-19: Code(s): U07.1 - COVID-19 Status: Acute Assessment and Plan: -Started on iv Remdesivir, dexamethasone 6mg daily - MDI: albuterol - incentive spirometry - starting supplements zinc, vitamin c and d - high flow oxygen (2) Respiratory failure, acute: Qualifiers: Respiratory failure complication: hypoxia Qualified Code(s): J96.01 - Acute respiratory failure with hypoxia Code(s): J96.00 - Acute respiratory failure, unspecified whether with hypoxia or hypercapnia Status: Acute Assessment and Plan: Pt is on high flow oxygen continue to watch for improvement in respiratory status (3) Obesity (BMI 30.0-34.9): Code(s): E66.9 - Obesity, unspecified Status: Chronic Assessment and Plan: Adviced to loose weight Subjective Date/time seen: 09/08/20 15:43 Interval history: Petty Germain is a 55 year old female with past medical history hyperlipidemia and obesity presents to the ED with chief complaint of shortness of breath, fever. COVID-19 test positive 09/04/2020 from [facility] for respiratory failure on iv remdesivir and oral steroids. Pt speaks Jordanian. PT is on high flow oxygen. Review of Systems Review of Systems: All systems reviewed & are unremarkable except as noted in HPI and below Exam Narrative: Exam Narrative: Pleasant obese woman in mild distress on high flow oxygen Objective Data Vital Signs Vital Signs: Vital Signs - 24 hr 09/07/20 16:00 09/07/20 18:00 09/07/20 20:00 Temperature 36.1 C L 37.8 C H Pulse Rate 89 78 77 Respiratory Rate 31 H 19 26 H Blood Pressure 150/87 H 120/81 122/78 Pulse Oximetry 93 97 92 09/07/20 20:22 09/07/20 21:02 09/07/20 22:00 Temperature 37.8 C H 37.1 C Pulse Rate 76 76 Respiratory Rate 18 24 H Blood Pressure 128/78 Pulse Oximetry 90 91 09/08/20 00:00 09/08/20 02:00 09/08/20 04:00 Temperature 36.7 C 36.9 C Pulse Rate 67 66 77 Respiratory Rate 20 24 H 27 H Blood Pressure 124/74 134/72 137/89 Pulse Oximetry 93 91 90 09/08/20 06:00 09/08/20 08:00 09/08/20 08:45 Temperature 36.8 C 36.8 C Pulse Rate 77 63 70 Respiratory Rate 21 H 24 H 18 Blood Pressure 143/85 H 128/76 Pulse Oximetry 90 92 92 09/08/20 10:00 09/08/20 12:00 09/08/20 14:00 Temperature 36.4 C Pulse Rate 70 77 69 Respiratory Rate 22 H 26 H 21 H Blood Pressure 143/78 H 134/81 123/69 Pulse Oximetry 93 92 96 Intake/Output Intake/Output: Intake & Output 09/05/20 09/06/20 09/07/20 09/08/20 23:59 23:59 23:59 23:59 Intake Total 1355 470 Output Total 1100 650 Balance 255 -180 Meds/Results Medications: Active Medications Generic Name Dose Route Start Last Admin Trade Name Freq PRN Reason Stop Dose Admin Acetaminophen 650 mg 09/06/20 17:06 09/07/20 20:22 Acetaminophen 325 Mg Tablet PO 650 mg Q4H PRN Administration Mild Pain (1-3) or Fever Albuterol 2 puff 09/06/20 20:00 09/08/20 11:30 Albuterol Sulfate (*Sp) Aerosol 1 Puff INHALATION 2 puff QIDRT DOLORES Administration Albuterol 2 puff 09/07/20 00:33 09/07/20 20:45 Albuterol Sulfate (*Sp) Aerosol 1 Puff INHALATION 2 puff QIDRT PRN Administration Shortness Of Breath Ascorbic Acid 500 mg 09/07/20 09:00 09/08/20 08:20 Ascorbic Acid 500 Mg Tablet PO 500 mg DAILY DOLORES Administration Dexamethasone 6 mg 09/07/20 08:00 09/08/20 08:20 Dexamethasone 2 Mg Tablet PO 09/16/20 08:01 6 mg DAILY@0800 DOLORES Administration Enoxaparin Sodium 40 mg 09/06/20 21:00 09/08/20 08:20 Enoxaparin 40 Mg/0.4 Ml Syringe SUB-Q 40 mg Q12HR DOLORES Administration Famotidine 20 mg 09/07/20 09:00 09/08/20 08:20 Famotidine 20 Mg Tablet PO 20 mg Q12HR DOLORES Administration Guaifenesin/Dextromethorphan 10 ml 11/04/20 01:03 09/07/20 20:24 Guaifenesin/Dextromethorphan 10 Ml Udc PO 10 ml Q4H PRN Administration Cough Remdesi
[2020-09-08] MEDS: POTASSIUM CHLORIDE 20 MEQ PACKET (FOR LIQUID) PO (15:53)
[2020-09-08] MEDS: guaiFENesin/DEXTROMETHORPHAN 10 ML UDC PO (18:27)
[2020-09-08] MEDS: REMDESIVIR 100 MG/NS 250 ML 100 MG/250 ML BAG 250 MG IVPB (22:35)
[2020-09-09] VITALS (24 sets, daily range): BP systolic 112–149; BP diastolic 60–87; PULSE 56–77; RESP 17–30; TEMP 36.2–37.7; O2SAT 78–100
[2020-09-09] MEDS: guaiFENesin/DEXTROMETHORPHAN 10 ML UDC PO (03:40)
[2020-09-09] MEDS: ACETAMINOPHEN 325 MG TABLET 650 MG PO (04:58)
[2020-09-09] MEDS: CENTRAL LINE FLUSH 10 ML IV PUSH ×3 (04:59→20:44)
[2020-09-09 05:38] LABS: Hemoglobin 12.8 g/dL (12.0-15.0); Mean Corpuscular HGB Conc 32.8 g/dl (32-36); Mean Corpuscular Hemoglobin 29.4 pg (26-34); Mean Corpuscular Volume 89.7 fl (80-100); Mean Platelet Volume 9.9 fl (7.4-10.4); Platelet Count Result 313 k/mm3 (150-375); Red Blood Count 4.35 M/mm3 (4.2-5.4); White Blood Count 13.6 K/mm3 (4.5-10.0)
[2020-09-09 05:45] LABS: Alanine Aminotransferase 84 U/L (4-35); Albumin Level 3.4 g/dL (3.5-5.1); Alkaline Phosphatase 74 U/L (38-126); Anion Gap 5 mmol/L (8-16); Aspartate Amino Transferase 61 U/L (14-36); Bilirubin,Total 0.5 mg/dL (0.2-1.3); Blood Urea Nitrogen 27 mg/dL (7-17); Calcium 8.6 mg/dL (8.4-10.2); Carbon Dioxide 31 mmol/L (22-30); Chloride 105 mmol/L (98-107); Estimated CRCL calculation 86 ml/min; Estimated Glomerular Filt Rate > 60; Glucose 153 mg/dL (65-105); Magnesium 2.4 mg/dL (1.6-2.3); Potassium 3.7 mmol/L (3.4-5.0); Sodium 141 mmol/L (137-145)
[2020-09-09 05:54] LABS: Lactate Dehydrogenase 2234 U/L (313-618)
[2020-09-09] MEDS: ALBUTEROL SULFATE (*SP) AEROSOL 1 PUFF 2 PUFF INHALATION ×4 (08:11→21:32)
[2020-09-09] MEDS: ZINC SULFATE 220 MG CAPSULE PO (08:39)
[2020-09-09] MEDS: ENOXAPARIN 40 MG/0.4 ML SYRINGE SUB-Q ×2 (08:39→20:44)
[2020-09-09] MEDS: CHOLECALCIFEROL 1,000 UNITS TABLET 4000 UNITS PO (08:39)
[2020-09-09] MEDS: DEXAMETHASONE 2 MG TABLET 6 MG PO (08:40)
[2020-09-09] MEDS: FAMOTIDINE 20 MG TABLET PO ×2 (08:40→20:43)
[2020-09-09] MEDS: ASCORBIC ACID 500 MG TABLET PO (08:40)
--- NOTE | 2020-09-09 10:47 | WPDINTPN ---
Progress Note: A&P Assessment and Plan (1) Acute respiratory disease due to COVID-19 virus: Code(s): U07.1 - COVID-19; J06.9 - Acute upper respiratory infection, unspecified Status: Acute Assessment and Plan: acute hypoxic respiratory failure secondary to COVID-19 SARS-CoV-2 PCR positive from [facility] 09/03/2020 Patient currently High-flow nasal cannula 60 L and 80% FiO2 and non-rebreather mask. Patient maintaining saturation in mid 90s and not in respiratory distress at this time but but may still deteriorate and need intubation Patient is in Airborne, Droplet and Contact Isolation Continue Remdesivir - patient's ALT is elevated which could be secondary to fatty liver. Closely monitor levels as they are decreasing Continue dexamethasone Convalescent plasma 1 unit given 09/07 with Lasix BNP unremarkable Monitor inflammatory markers Up in chair and incentive spirometry to minimize atelectasis Bronchodilators Pt is on zinc, vitamin c and d Encouraged pt to try proning again today (2) Hyperlipidemia: Code(s): E78.5 - Hyperlipidemia, unspecified Status: Acute Assessment and Plan: hold statin due to elevated liver enzymes which are improving (3) Elevated liver enzymes: Code(s): R74.8 - Abnormal levels of other serum enzymes Status: Acute Assessment and Plan: most likely secondary to fatty liver from obesity Right upper quadrant ultrasound showed hepatic steatosis levels improving Additional Plan Diet: add nutritional supplement to her regular diet DVT prophylaxis: intermediate does lovenox 40mg BID for COVID 19. Code status: patient wishes to be Full code. Total Critical Care Time - 32 minutes Due to a high probability of clinically significant, life threatening deterioration, the patient required my highest level of preparedness to intervene emergently and I personally spent this critical care time directly and personally managing the patient. This critical care time included obtaining a history; examining the patient; pulse oximetry; ordering and review of studies; arranging urgent treatment with development of a management plan; evaluation of patient's response to treatment; frequent reassessment; and discussions with other providers. It was exclusive of separately billable procedures and treating other patients and teaching time. Please see Assessment and Plan section and the rest of the note for further information on patient assessment and treatment Subjective Date/time seen: 09/09/20 Overnight events reviewed. Afebrile Continues to be on High-flow nasal cannula 60 L and 80% FiO2 and non-rebreather mask. She did sit in a chair yesterday She states occasional shortness of breath episodes and also pain in the chest with deep breathing or coughing. Complains of coughing intermittently Vitals acceptable she did try prone position yesterday but did it only for 30 minutes. She was going to try again today Review of Systems Review of Systems: All systems reviewed & are unremarkable except as noted in HPI and below (HPI) Exam Narrative: Exam Narrative: General: Pt is alert awake and in NAD Lungs/Chest: Trachea central Clear BS B/L, few basilar crackles, no wheezing, no respiratory distress or use of accessory muscles Cardiac: RRR. Normal S1 S2. No murmurs Circulation: Pedal pulses are intact and symmetrical. Abdomen: Normal bowel sounds.. obese Soft. NT. ND. Extremities: No clubbing, cyanosis or edema. Warm : Niño in place Neurologic: Follows commands. Moves all 4 extremities PERRL Skin: No Rash Objective Data Vital Signs Vital Signs: Vital Signs - 24 hr 09/08/20 12:00 09/08/20 14:00 09/08/20 15:55 Temperature 36.4 C Pulse Rate 77 69 Respiratory Rate 26 H 21 H Blood Pressure 134/81 123/69 Pulse Oximetry 92 96 96 09/08/20 16:00 09/08/20 18:00 09/08/20 18:23 Temperature 37.2 C Pulse Rate 73 70 Respiratory Rate 23 H 2
--- NOTE | 2020-09-09 16:32 | PM.IMPN ---
Progress Note: A&P Assessment and Plan (1) COVID-19: Code(s): U07.1 - COVID-19 Status: Acute Assessment and Plan: -Started on iv Remdesivir, dexamethasone 6mg daily - MDI: albuterol - incentive spirometry - starting supplements zinc, vitamin c and d - high flow oxygen (2) Respiratory failure, acute: Qualifiers: Respiratory failure complication: hypoxia Qualified Code(s): J96.01 - Acute respiratory failure with hypoxia Code(s): J96.00 - Acute respiratory failure, unspecified whether with hypoxia or hypercapnia Status: Acute Assessment and Plan: Pt is on high flow oxygen continue to watch for improvement in respiratory status (3) Obesity (BMI 30.0-34.9): Code(s): E66.9 - Obesity, unspecified Status: Chronic Assessment and Plan: Adviced to loose weight Subjective Date/time seen: 09/09/20 16:32 Interval history: Petty Germain is a 55 year old female with past medical history hyperlipidemia and obesity presents to the ED with chief complaint of shortness of breath, fever. COVID-19 test positive 09/04/2020 from [facility] icu for respiratory failure on iv remdesivir and oral steroids. Pt speaks Taiwanese. PT is on high flow oxygen and non rebreather mask Review of Systems Review of Systems: All systems reviewed & are unremarkable except as noted in HPI and below Exam Narrative: Exam Narrative: Pleasant obese woman in mild distress on high flow oxygen Objective Data Vital Signs Vital Signs: Vital Signs - 24 hr 09/08/20 18:00 09/08/20 18:23 09/08/20 20:00 Temperature Pulse Rate 70 70 Respiratory Rate 28 H Blood Pressure 114/69 Pulse Oximetry 97 99 95 09/08/20 20:01 09/08/20 21:09 09/08/20 21:11 Temperature 37.2 C Pulse Rate 72 67 62 Respiratory Rate 22 H 24 H 20 Blood Pressure 147/89 H Pulse Oximetry 94 93 09/08/20 22:00 09/09/20 00:00 09/09/20 02:00 Temperature 37.1 C Pulse Rate 55 L 56 L 59 L Respiratory Rate 25 H 25 H 24 H Blood Pressure 130/84 126/77 127/70 Pulse Oximetry 94 92 92 09/09/20 03:36 09/09/20 03:45 09/09/20 04:00 Temperature 36.7 C Pulse Rate 62 Respiratory Rate 21 H Blood Pressure 132/78 Pulse Oximetry 92 96 09/09/20 06:00 09/09/20 08:00 09/09/20 08:11 Temperature 36.9 C Pulse Rate 76 67 63 Respiratory Rate 17 30 H 25 H Blood Pressure 133/82 125/71 Pulse Oximetry 94 91 93 09/09/20 09:00 09/09/20 10:00 09/09/20 10:30 Temperature Pulse Rate 64 Respiratory Rate 26 H Blood Pressure 112/60 Pulse Oximetry 78 L 99 99 09/09/20 12:00 09/09/20 12:24 09/09/20 14:00 Temperature 36.2 C L Pulse Rate 71 73 Respiratory Rate 22 H 25 H Blood Pressure 120/70 124/72 Pulse Oximetry 100 100 93 09/09/20 14:15 09/09/20 15:58 Temperature Pulse Rate 61 Respiratory Rate 19 Blood Pressure Pulse Oximetry 95 100 Intake/Output Intake/Output: Intake & Output 09/06/20 09/07/20 09/08/20 09/09/20 23:59 23:59 23:59 23:59 Intake Total 1605 1460 240 Output Total 1100 1250 300 Balance 505 210 -60 Meds/Results Medications: Active Medications Generic Name Dose Route Start Last Admin Trade Name Freq PRN Reason Stop Dose Admin Acetaminophen 650 mg 09/06/20 17:06 09/09/20 04:58 Acetaminophen 325 Mg Tablet PO 650 mg Q4H PRN Administration Mild Pain (1-3) or Fever Albuterol 2 puff 09/06/20 20:00 09/09/20 16:00 Albuterol Sulfate (*Sp) Aerosol 1 Puff INHALATION 2 puff QIDRT DOLORES Administration Albuterol 2 puff 09/07/20 00:33 09/07/20 20:45 Albuterol Sulfate (*Sp) Aerosol 1 Puff INHALATION 2 puff QIDRT PRN Administration Shortness Of Breath Ascorbic Acid 500 mg 09/07/20 09:00 09/09/20 08:40 Ascorbic Acid 500 Mg Tablet PO 500 mg DAILY DOLORES Administration Dexamethasone 6 mg 09/07/20 08:00 09/09/20 08:40 Dexamethasone 2 Mg Tablet PO 09/16/20 08:01 6 mg DAILY@0800 [facility] Administ
[2020-09-09] MEDS: REMDESIVIR 100 MG/NS 250 ML 100 MG/250 ML BAG 250 MG IVPB (20:42)
[2020-09-10] VITALS (22 sets, daily range): BP systolic 100–156; BP diastolic 63–85; PULSE 61–108; RESP 20–32; TEMP 35.9–38.5; O2SAT 89–98
[2020-09-10] MEDS: guaiFENesin/DEXTROMETHORPHAN 10 ML UDC PO (05:55)
[2020-09-10] MEDS: CENTRAL LINE FLUSH 10 ML IV PUSH ×3 (05:56→21:00)
[2020-09-10 06:20] LABS: Hemoglobin 13.2 g/dL (12.0-15.0); Mean Corpuscular Hemoglobin 29.5 pg (26-34); Mean Corpuscular Volume 89.3 fl (80-100); Mean Platelet Volume 9.9 fl (7.4-10.4); Platelet Count Result 215 k/mm3 (150-375); Red Blood Count 4.48 M/mm3 (4.2-5.4); Red Cell Distribution Width 12.8 % (11.5-14.5); White Blood Count 18.2 K/mm3 (4.5-10.0)
[2020-09-10 06:47] LABS: D Dimer 11.89 ug/mL (<0.48)
[2020-09-10 07:09] LABS: Alanine Aminotransferase 72 U/L (4-35); Albumin Level 3.4 g/dL (3.5-5.1); Alkaline Phosphatase 87 U/L (38-126); Anion Gap 7 mmol/L (8-16); Aspartate Amino Transferase 57 U/L (14-36); Bilirubin,Total 0.8 mg/dL (0.2-1.3); Blood Urea Nitrogen 24 mg/dL (7-17); Calcium 8.7 mg/dL (8.4-10.2); Carbon Dioxide 32 mmol/L (22-30); Chloride 104 mmol/L (98-107); Estimated CRCL calculation 86 ml/min; Estimated Glomerular Filt Rate > 60; Glucose 108 mg/dL (65-105); Magnesium 2.5 mg/dL (1.6-2.3); Potassium 3.6 mmol/L (3.4-5.0); Sodium 143 mmol/L (137-145)
[2020-09-10] MEDS: ALBUTEROL SULFATE (*SP) AEROSOL 1 PUFF 2 PUFF INHALATION ×4 (08:43→20:38)
[2020-09-10] MEDS: DEXAMETHASONE 2 MG TABLET 6 MG PO (08:46)
[2020-09-10] MEDS: ENOXAPARIN 40 MG/0.4 ML SYRINGE SUB-Q ×2 (08:46→21:00)
[2020-09-10] MEDS: ACETAMINOPHEN 325 MG TABLET 650 MG PO (08:46)
[2020-09-10] MEDS: FAMOTIDINE 20 MG TABLET PO ×2 (08:47→21:00)
--- NOTE | 2020-09-10 10:34 | WPDINTPN ---
Progress Note: A&P Assessment and Plan (1) Acute respiratory disease due to COVID-19 virus: Code(s): U07.1 - COVID-19; J06.9 - Acute upper respiratory infection, unspecified Status: Acute Assessment and Plan: acute hypoxic respiratory failure secondary to COVID-19 SARS-CoV-2 PCR positive from [facility] 09/03/2020 CXR shows Stable diffuse lung disease, consistent with pneumonia and/or pulmonary edema and/or acute respiratory distress syndrome (ARDS). Patient has shown some improvement in hypoxia with decreased oxygen requirement. She is currently High-flow nasal cannula 50 L and 50% FiO2 and non-rebreather mask. Patient maintaining saturation in mid 90s and not in respiratory distress at this time. Patient is in Airborne, Droplet and Contact Isolation Continue Remdesivir - patient's ALT is elevated which could be secondary to fatty liver. Closely monitor levels as they are decreasing Continue dexamethasone Convalescent plasma 1 unit given 09/07 with Lasix BNP unremarkable Monitor inflammatory markers Up in chair and incentive spirometry to minimize atelectasis Bronchodilators Pt is on zinc, vitamin c and d I have encouraged patient to try proning but she has been unable to do it consistently or for any meaningful period of time will add Chloraseptic spray for throat discomfort (2) Hyperlipidemia: Code(s): E78.5 - Hyperlipidemia, unspecified Status: Acute Assessment and Plan: hold statin due to elevated liver enzymes which are improving (3) Elevated liver enzymes: Code(s): R74.8 - Abnormal levels of other serum enzymes Status: Acute Assessment and Plan: most likely secondary to fatty liver from obesity Right upper quadrant ultrasound showed hepatic steatosis levels improving (4) Leukocytosis: Code(s): D72.829 - Elevated white blood cell count, unspecified Status: Acute Assessment and Plan: likely secondary to steroids monitor Additional Plan Diet: added nutritional supplement to her regular diet DVT prophylaxis: intermediate does lovenox 40mg BID for COVID 19. Code status: patient wishes to be Full code. Total Critical Care Time - 30 minutes Due to a high probability of clinically significant, life threatening deterioration, the patient required my highest level of preparedness to intervene emergently and I personally spent this critical care time directly and personally managing the patient. This critical care time included obtaining a history; examining the patient; pulse oximetry; ordering and review of studies; arranging urgent treatment with development of a management plan; evaluation of patient's response to treatment; frequent reassessment; and discussions with other providers. It was exclusive of separately billable procedures and treating other patients and teaching time. Please see Assessment and Plan section and the rest of the note for further information on patient assessment and treatment Subjective Date/time seen: 09/10/20 10:34 patient comfortably sleeping without any respiratory distress when I went to see her. She told me that she still has intermittent shortness of breath and intermittent episodes of cough is mostly dry.. She told me her main issue is her so sore throat. she denies any other complaints Review of Systems Review of Systems: All systems reviewed & are unremarkable except as noted in HPI and below (HPI) Exam Narrative: Exam Narrative: General: Pt is alert awake and in NAD Lungs/Chest: Trachea central Clear BS B/L, few basilar crackles, no wheezing, no respiratory distress or use of accessory muscles Cardiac: RRR. Normal S1 S2. No murmurs Circulation: Pedal pulses are intact and symmetrical. Abdomen: Normal bowel sounds.. obese Soft. NT. ND. Extremities: No clubbing, cyanosis or edema. Warm : Niño in place Neurologic: Follows commands. Moves all 4 extremities PERRL Skin: No Rash H
[2020-09-10] MEDS: ZINC SULFATE 220 MG CAPSULE PO (10:50)
[2020-09-10] MEDS: CHOLECALCIFEROL 1,000 UNITS TABLET 4000 UNITS PO (10:50)
[2020-09-10] MEDS: ASCORBIC ACID 500 MG TABLET PO (10:50)
--- NOTE | 2020-09-10 15:16 | PM.IMPN ---
Progress Note: A&P Assessment and Plan (1) COVID-19: Code(s): U07.1 - COVID-19 Status: Acute Assessment and Plan: -Started on iv Remdesivir, dexamethasone 6mg daily - MDI: albuterol - incentive spirometry - starting supplements zinc, vitamin c and d - high flow oxygen continue icu care (2) Respiratory failure, acute: Qualifiers: Respiratory failure complication: hypoxia Qualified Code(s): J96.01 - Acute respiratory failure with hypoxia Code(s): J96.00 - Acute respiratory failure, unspecified whether with hypoxia or hypercapnia Status: Acute Assessment and Plan: Pt is on high flow oxygen continue to watch for improvement in respiratory status (3) Obesity (BMI 30.0-34.9): Code(s): E66.9 - Obesity, unspecified Status: Chronic Assessment and Plan: Adviced to loose weight Additional Plan #COVID-19 pneumonia #obesity BMI 34.6 - positive test from [facility] 09/03/2020 - elevated inflammatory markers ferritin, LDH, crp - supplemental oxygen to keep oxygen saturation greater than 90%, on 6 L currently - comorbidities of obesity - starting Remdesivir, dexamethasone 6mg daily - MDI: albuterol - incentive spirometry - starting supplements zinc, vitamin c and d Diet: Regular DVT prophylaxis:will do lovenox 40mg BID for COVID 19 Code status: Full code Disposition: medical floor, pending clinical course German bottom sander used Subjective Date/time seen: 09/10/20 15:16 Interval history: Petty Germain is a 55 year old female with past medical history hyperlipidemia and obesity presents to the ED with chief complaint of shortness of breath, fever. COVID-19 test positive 09/04/2020 from [facility]. In icu for respiratory failure on iv remdesivir and oral steroids. Pt speaks German. PT is on high flow oxygen and non rebreather mask. Review of Systems Review of Systems: All systems reviewed & are unremarkable except as noted in HPI and below Exam Narrative: Exam Narrative: Pleasant obese woman in mild distress on high flow oxygen Objective Data Vital Signs Vital Signs: Vital Signs - 24 hr 09/09/20 15:58 09/09/20 16:00 09/09/20 18:00 Temperature 36.2 C L Pulse Rate 61 63 73 Respiratory Rate 19 26 H 27 H Blood Pressure 125/71 131/87 Pulse Oximetry 100 100 94 09/09/20 18:30 09/09/20 18:31 09/09/20 20:00 Temperature Pulse Rate 63 Respiratory Rate Blood Pressure Pulse Oximetry 96 100 93 09/09/20 21:26 09/09/20 21:30 09/09/20 22:00 Temperature 37.7 C H Pulse Rate 67 74 66 Respiratory Rate 26 H 23 H 27 H Blood Pressure 149/86 H 148/77 H Pulse Oximetry 93 93 92 09/10/20 00:00 09/10/20 02:00 09/10/20 02:38 Temperature 37.7 C H Pulse Rate 61 75 71 Respiratory Rate 26 H 27 H 20 Blood Pressure 155/79 H 139/76 Pulse Oximetry 90 92 93 09/10/20 03:36 09/10/20 03:47 09/10/20 04:00 Temperature 37.2 C 37.1 C Pulse Rate 85 Respiratory Rate 28 H Blood Pressure 156/82 H Pulse Oximetry 90 92 09/10/20 06:00 09/10/20 08:00 09/10/20 08:45 Temperature 38.5 C H Pulse Rate 89 96 108 H Respiratory Rate 32 H 30 H 30 H Blood Pressure 130/84 148/81 H Pulse Oximetry 89 L 95 89 L 09/10/20 08:46 09/10/20 09:30 09/10/20 09:46 Temperature 38.5 C H 37.6 C Pulse Rate Respiratory Rate Blood Pressure Pulse Oximetry 97 09/10/20 10:00 09/10/20 12:00 09/10/20 13:40 Temperature 35.9 C L Pulse Rate 97 89 Respiratory Rate 21 H 23 H Blood Pressure 116/82 122/85 Pulse Oximetry 97 95 98 09/10/20 14:00 Temperature Pulse Rate 82 Respiratory Rate 27 H Blood Pressure 106/73 Pulse Oximetry 91 Intake/Output Intake/Output: Intake & Output 09/07/20 09/08/20 09/09/20 09/10/20 23:59 23:59 23:59 23:59 Intake Total 1605 1460 1110 500 Output Total 1100 1250 700 800 Balance 505 210 410 -300 Meds/Results Medications: Active Medications Generic Name Dose Route Start
[2020-09-10] MEDS: REMDESIVIR 100 MG/NS 250 ML 100 MG/250 ML BAG 250 MG IVPB (20:59)
[2020-09-11] VITALS (44 sets, daily range): BP systolic 53–180; BP diastolic 41–95; PULSE 74–131; RESP 22–34; TEMP 37.6–39.6; O2SAT 77–100
[2020-09-11 03:28] LABS: Alveolar/Arterial O2 Gradient 638.6 mmHg; Base Excess ABG 0.6 mEq/l (+/-2.0); Carboxyhemoglobin 0.6 % THb (0-2.0); Fractional Inspired Oxygen 100 %; HCO3 ABG 22.7 mEq/l (22.0-26.0); Methemoglobin ABG 0.3 %THb (0-1.5); Oxygen Content ABG 17.1 %vol (16.0-22.0); Oxyhemoglobin 81.9 % THb (90.0-100.0); PCO2 ABG 30.1 mmHg (35.0-45.0); PO2 ABG 44.3 mmHg (80.0-100.0); PO2 FiO2 Ratio Arterial Blood 0.44 %; Reduced Hemoglobin 17.2 %THb (0-5.0); Total Hemoglobin 14.9 g/dL (12.0-18.0); pH ABG 7.496 (7.350-7.450)
[2020-09-11 03:29] LABS: Modified Allen's Test Pass; Oxygen Saturation ABG 84.8 % (95.0-100.0); Site Drawn LEFT RADIAL
[2020-09-11 03:30] LABS: Device HIGH FLOW THERAPY
[2020-09-11] MEDS: CENTRAL LINE FLUSH 10 ML IV PUSH ×3 (04:17→21:37)
[2020-09-11] MEDS: LORazepam INJ (*CRX) 2 MG/ML VIAL 0.5 MG IV PUSH (04:17)
[2020-09-11 04:45] LABS: Hematocrit 39.4 % (37.0-47.0); Mean Corpuscular Hemoglobin 29.5 pg (26-34); Mean Corpuscular Volume 89.3 fl (80-100); Platelet Count Result 179 k/mm3 (150-375); Red Blood Count 4.41 M/mm3 (4.2-5.4); Red Cell Distribution Width 12.8 % (11.5-14.5)
[2020-09-11 05:39] LABS: Alanine Aminotransferase 65 U/L (4-35); Albumin Level 3.2 g/dL (3.5-5.1); Alkaline Phosphatase 90 U/L (38-126); Anion Gap 5 mmol/L (8-16); Aspartate Amino Transferase 52 U/L (14-36); Bilirubin,Total 0.8 mg/dL (0.2-1.3); Blood Urea Nitrogen 25 mg/dL (7-17); Calcium 8.3 mg/dL (8.4-10.2); Carbon Dioxide 32 mmol/L (22-30); Chloride 104 mmol/L (98-107); Estimated CRCL calculation 101 ml/min; Estimated Glomerular Filt Rate > 60; Glucose 116 mg/dL (65-105); Magnesium 2.3 mg/dL (1.6-2.3); Potassium 3.4 mmol/L (3.4-5.0); Sodium 141 mmol/L (137-145)
[2020-09-11 06:24] LABS: Lactate Dehydrogenase 2716 U/L (313-618)
[2020-09-11] MEDS: ALBUTEROL SULFATE (*SP) AEROSOL 1 PUFF 2 PUFF INHALATION (08:00)
--- NOTE | 2020-09-11 08:00 | WPDINTPN ---
Progress Note: A&P Assessment and Plan (1) Acute respiratory disease due to COVID-19 virus: Code(s): U07.1 - COVID-19; J06.9 - Acute upper respiratory infection, unspecified Status: Acute Assessment and Plan: acute hypoxic respiratory failure secondary to COVID-19 SARS-CoV-2 PCR positive from [facility] 09/03/2020, Admitted 09/06, Air Vo 09/07, intubated 09/11 overnight patient respiratory status worsen and was intubated this morning. Chest x-ray reviewed will withdraw ETT by 1 more cm ABG pending Patient is in Airborne, Droplet and Contact Isolation Continue Remdesivir - patient's ALT is elevated which could be secondary to fatty liver. Closely monitor levels as they are decreasing Continue dexamethasone Convalescent plasma 1 unit given 09/07 with Lasix BNP unremarkable Monitor inflammatory markers Bronchodilators Pt is on zinc, vitamin c and d (2) Hyperlipidemia: Code(s): E78.5 - Hyperlipidemia, unspecified Status: Acute Assessment and Plan: hold statin due to elevated liver enzymes which are improving (3) Elevated liver enzymes: Code(s): R74.8 - Abnormal levels of other serum enzymes Status: Acute Assessment and Plan: most likely secondary to fatty liver from obesity Right upper quadrant ultrasound showed hepatic steatosis levels improving (4) Leukocytosis: Code(s): D72.829 - Elevated white blood cell count, unspecified Status: Acute Assessment and Plan: likely secondary to steroids monitor Additional Plan Diet: start tube feeds DVT prophylaxis: intermediate does lovenox 40mg BID for COVID 19. Code status: patient wishes to be Full code. Right upper extremity PICC line in place Total Critical Care Time - 32 minutes except separately billed procedures Due to a high probability of clinically significant, life threatening deterioration, the patient required my highest level of preparedness to intervene emergently and I personally spent this critical care time directly and personally managing the patient. This critical care time included obtaining a history; examining the patient; pulse oximetry; ordering and review of studies; arranging urgent treatment with development of a management plan; evaluation of patient's response to treatment; frequent reassessment; and discussions with other providers. It was exclusive of separately billable procedures and treating other patients and teaching time. Please see Assessment and Plan section and the rest of the note for further information on patient assessment and treatment Subjective Date/time seen: 09/11/20 0800 overnight patient's respiratory distress and hypoxia worsened. Was placed on BiPAP During the night. This morning when patient was transition to high-flow nasal cannula the she quickly ED deteriorated and her saturations were in 70. When I saw the patient she was already placed back on BiPAP but appeared in respiratory distress with increased work of breathing tachypnea. Decision was made to intubate the patient at that time and I spoke to patient and she was agreeable she noded her head yes as she was in lot of respiratory distress. patient was emergently intubated Review of Systems Review of Systems: ROS unobtainable: Yes unobtainable due to endotracheal tube Exam Narrative: Exam Narrative: General: Pt is now sedated, intubated and on mechanical ventilation Lungs/Chest: Trachea central Coarse BS B/L, No crackles or wheezing. Cardiac: RRR. Normal S1 S2. No murmurs Circulation: Pedal pulses are intact and symmetrical. Abdomen: normal bowel sounds. Obese. Soft. NT. ND. Extremities: No clubbing, cyanosis or edema. Warm : Niño in place Neurologic: Unable to assess due to sedation. but prior to intubation she was alert awake and following commandsPERRL Objective Data Vital Signs Vital Signs: Vital Signs - 24 hr 09/10/20 09:46 09/10/20 10:00 09/10/20 12
[2020-09-11] MEDS: ENOXAPARIN 40 MG/0.4 ML SYRINGE SUB-Q ×2 (08:03→21:36)
[2020-09-11] MEDS: RAPID SEQUENCE INTUBATION KIT 1 EACH (08:10)
[2020-09-11] MEDS: PROPOFOL IV EMULSION 100 ML 12.2 MG IV CONT (08:35)
[2020-09-11] MEDS: FENTANYL 2,500MCG/NS250ML(*CRX 2,500 MCG/250 ML BAG IV CONT (08:55)
--- NOTE | 2020-09-11 09:35 | WPDPROCEDUR ---
Procedures Intubation Intubation Date: 09/11/20 Intubation Time: 08:00 Consent: verbal consent obtained from patient who was in respiratory distress A pre-procedural Time-Out was completed immediately before starting the procedure and confirmed: Patient Identification, Site, Procedure, Patient Position and the Availability of Requisite Equipment: Yes Mg given: 20 Paralytic: succinylcholine Mg given: 100 Laryngoscope: fiber optic video scope Assist device used: fiber optic device ET tube size: 7.5 Tube secured depth (cm): 24 Tube secured location: lips Tube placement confirmation: visualized tube passing through cords and equal breath sounds bilaterally Patient tolerated procedure: well Intubation complications: difficult intubation Additional comments: First attempt was esophageal intubation. ET tube was withdrawn and patient was bagged. sats recovered with bagging. patient was successfully intubated on 2nd attempt. patient was very anterior.
[2020-09-11] MEDS: NOREPINEPHRINE 8 MG/D5W 250 ML 8 MG/250 ML BAG 9.38 MG IV CONT (10:20)
[2020-09-11] MEDS: SODIUM CHLORIDE 0.9% IV 500 ML IV CONT (10:30)
[2020-09-11 10:45] LABS: Alveolar/Arterial O2 Gradient 551.7 mmHg; Base Excess ABG -0.6 mEq/l (+/-2.0); Carboxyhemoglobin 0.5 % THb (0-2.0); Fractional Inspired Oxygen 100 %; Methemoglobin ABG 0.3 %THb (0-1.5); Oxygen Content ABG 19.2 %vol (16.0-22.0); Oxygen Saturation ABG 98.4 % (95.0-100.0); Oxyhemoglobin 96.8 % THb (90.0-100.0); PCO2 ABG 39.6 mmHg (35.0-45.0); PO2 ABG 121.7 mmHg (80.0-100.0); PO2 FiO2 Ratio Arterial Blood 1.22 %; Reduced Hemoglobin 2.4 %THb (0-5.0); pH ABG 7.401 (7.350-7.450)
[2020-09-11 10:46] LABS: Device VENTILATOR; Modified Allen's Test Pass; Site Drawn LEFT RADIAL
[2020-09-11 10:47] LABS: Arterial Blood Gas PEEP 12 cmH2O; Arterial Blood Gas Tidal Volume 400 ml; Arterial Blood Gas Vent Mode CMV; Arterial Blood Gas Ventilator rate 22 /MIN
[2020-09-11] MEDS: ACETAMINOPHEN 325 MG TABLET 650 MG PO (11:03)
[2020-09-11] MEDS: CHOLECALCIFEROL 1,000 UNITS TABLET 4000 UNITS PO (11:30)
[2020-09-11] MEDS: ASCORBIC ACID 500 MG TABLET PO (11:31)
[2020-09-11] MEDS: ZINC SULFATE 220 MG CAPSULE PO (11:31)
[2020-09-11] MEDS: FAMOTIDINE 20 MG TABLET PO ×2 (11:31→21:36)
[2020-09-11] MEDS: DEXAMETHASONE 2 MG TABLET 6 MG PO (11:31)
--- NOTE | 2020-09-11 14:19 | PM.IMPN ---
Progress Note: A&P Assessment and Plan (1) COVID-19: Code(s): U07.1 - COVID-19 Status: Acute Assessment and Plan: -Started on iv Remdesivir, dexamethasone 6mg daily and convalescent plasma. - Intubated now. - continue icu care (2) Respiratory failure, acute: Qualifiers: Respiratory failure complication: hypoxia Qualified Code(s): J96.01 - Acute respiratory failure with hypoxia Code(s): J96.00 - Acute respiratory failure, unspecified whether with hypoxia or hypercapnia Status: Acute Assessment and Plan: On mechanical ventilation, intubated 09/11. (3) Obesity (BMI 30.0-34.9): Code(s): E66.9 - Obesity, unspecified Status: Chronic Subjective Date/time seen: PT was intubated earlier today. 09/11/20 14:19 Exam Narrative: Exam Narrative: Intubated , sedated. HENMT: Head: normal to inspection Resp: Other: Intubated, decreased breath sounds, mild rhonchi. Cardio: Rate: regular rate Rhythm: regular rhythm GI: GI Palp: Yes Soft to palpation Skin: General skin exam: no rashes or lesions noted Neuro: Other: Intubated and sedated. Extrem: General: no clubbing, cyanosis or edema Objective Data Vital Signs Vital Signs: Vital Signs - 24 hr 09/10/20 16:00 09/10/20 16:53 09/10/20 18:00 Temperature 99.4 F Pulse Rate 82 85 81 Respiratory Rate 28 H 22 H 27 H Blood Pressure 111/78 100/63 Pulse Oximetry 95 94 93 09/10/20 20:00 09/10/20 20:39 09/10/20 22:00 Temperature 99.6 F Pulse Rate 83 85 72 Respiratory Rate 25 H 23 H 24 H Blood Pressure 126/82 145/85 H Pulse Oximetry 93 90 89 L 09/11/20 00:00 09/11/20 02:00 09/11/20 04:00 Temperature 99.6 F Pulse Rate 88 88 111 H Respiratory Rate 26 H 28 H Blood Pressure 146/81 H 139/88 Pulse Oximetry 88 L 88 L 91 09/11/20 06:00 09/11/20 07:55 09/11/20 08:00 Temperature 101.3 F H Pulse Rate 110 H 105 H 114 H Respiratory Rate 33 H 34 H Blood Pressure 146/92 H 126/91 H Pulse Oximetry 90 99 09/11/20 08:30 09/11/20 08:35 09/11/20 08:55 Temperature Pulse Rate 131 H 126 H 128 H Respiratory Rate 22 H 22 H Blood Pressure Pulse Oximetry 94 09/11/20 09:30 09/11/20 09:45 09/11/20 10:00 Temperature 103.3 F H Pulse Rate 112 H 118 H 112 H Respiratory Rate 22 H 22 H 22 H Blood Pressure 53/44 L Pulse Oximetry 95 09/11/20 10:20 09/11/20 10:40 09/11/20 10:44 Temperature Pulse Rate 89 89 93 Respiratory Rate 22 H Blood Pressure 54/41 L Pulse Oximetry 97 09/11/20 11:00 09/11/20 11:03 09/11/20 11:30 Temperature 102.4 F H Pulse Rate 91 92 Respiratory Rate 22 H Blood Pressure 62/45 L Pulse Oximetry 09/11/20 11:35 09/11/20 11:40 09/11/20 11:50 Temperature Pulse Rate 92 94 86 Respiratory Rate Blood Pressure 57/41 L 59/43 L 59/42 L Pulse Oximetry 09/11/20 11:51 09/11/20 12:00 09/11/20 12:03 Temperature 101.8 F H 102.1 F H Pulse Rate 92 92 Respiratory Rate 22 H 22 H Blood Pressure 171/88 H Pulse Oximetry 100 100 09/11/20 13:48 09/11/20 14:00 Temperature Pulse Rate 92 91 Respiratory Rate Blood Pressure Pulse Oximetry 98 Intake/Output Intake/Output: Intake & Output 09/08/20 09/09/20 09/10/20 09/11/20 23:59 23:59 23:59 23:59 Intake Total 1460 1110 1100 Output Total 1250 700 800 900 Balance 210 410 300 -900 Meds/Results Medications: Active Medications Generic Name Dose Route Start Last Admin Trade Name Freq PRN Reason Stop Dose Admin Acetaminophen 650 mg 09/06/20 17:06 09/11/20 11:03 Acetaminophen 325 Mg Tablet PO 650 mg Q4H PRN Administration Mild Pain (1-3) or Fever Albuterol 2.5 mg 09/11/20 12:54 Albuterol Sulfate Neb 2.5 Mg/0.5 Ml Inh INHALATION Q4HRT PRN Shortness Of Breath Ascorbic Acid 500 mg 09/07/20 09:00 09/11/20 11:31 Ascorbic Acid 500 Mg Tablet PO 500 mg DAILY DOLORES Administration Benzocaine 1 lozenge 09/10/20
[2020-09-11] MEDS: NOREPINEPHRINE 8 MG/D5W 250 ML 8 MG/250 ML BAG 11.25 MG IV CONT (21:34)
[2020-09-12] VITALS (37 sets, daily range): BP systolic 81–113; BP diastolic 53–74; PULSE 61–84; RESP 22–29; TEMP 36.9–39.6; O2SAT 92–98; BMI 35.4
[2020-09-12 01:25] LABS: Glucose Point of Care 285 (65-105)
[2020-09-12] MEDS: FENTANYL 2,500MCG/NS250ML(*CRX 2,500 MCG/250 ML BAG 12.5 MCG IV CONT (02:06)
[2020-09-12 04:20] LABS: Alveolar/Arterial O2 Gradient 258.9 mmHg; Base Excess ABG 1.6 mEq/l (+/-2.0); Carboxyhemoglobin 0.5 % THb (0-2.0); Device VENTILATOR; Fractional Inspired Oxygen 50 %; HCO3 ABG 25.3 mEq/l (22.0-26.0); Methemoglobin ABG 0.3 %THb (0-1.5); Modified Allen's Test Pass; Oxygen Content ABG 17.2 %vol (16.0-22.0); Oxygen Saturation ABG 90.7 % (95.0-100.0); Oxyhemoglobin 89.3 % THb (90.0-100.0); PCO2 ABG 36.9 mmHg (35.0-45.0); PO2 ABG 56.1 mmHg (80.0-100.0); PO2 FiO2 Ratio Arterial Blood 1.12 %; Reduced Hemoglobin 9.9 %THb (0-5.0); Site Drawn LEFT RADIAL; Total Hemoglobin 13.7 g/dL (12.0-18.0); pH ABG 7.454 (7.350-7.450)
[2020-09-12 04:21] LABS: Arterial Blood Gas PEEP 12 cmH2O; Arterial Blood Gas Tidal Volume 400 ml; Arterial Blood Gas Vent Mode CMV; Arterial Blood Gas Ventilator rate 22 /MIN
[2020-09-12] MEDS: INSULIN ASPART (*BKC) 100 UNITS/ML SUB-Q ×3 (06:10→17:07)
[2020-09-12] MEDS: CENTRAL LINE FLUSH 10 ML IV PUSH ×3 (06:11→20:53)
[2020-09-12 06:16] LABS: Hematocrit 36.4 % (37.0-47.0); Hemoglobin 12.1 g/dL (12.0-15.0); Mean Corpuscular HGB Conc 33.2 g/dl (32-36); Mean Corpuscular Hemoglobin 29.6 pg (26-34); Mean Platelet Volume 10.1 fl (7.4-10.4); Platelet Count Result 187 k/mm3 (150-375); Red Blood Count 4.09 M/mm3 (4.2-5.4); Red Cell Distribution Width 13.2 % (11.5-14.5); White Blood Count 19.3 K/mm3 (4.5-10.0)
[2020-09-12 06:25] LABS: Alanine Aminotransferase 46 U/L (4-35); Albumin Level 3.1 g/dL (3.5-5.1); Alkaline Phosphatase 73 U/L (38-126); Anion Gap 7 mmol/L (8-16); Aspartate Amino Transferase 26 U/L (14-36); Bilirubin,Total 0.5 mg/dL (0.2-1.3); Blood Urea Nitrogen 29 mg/dL (7-17); Calcium 8.4 mg/dL (8.4-10.2); Carbon Dioxide 33 mmol/L (22-30); Chloride 101 mmol/L (98-107); Estimated CRCL calculation 79 ml/min; Estimated Glomerular Filt Rate > 60; Glucose 274 mg/dL (65-105); Magnesium 2.7 mg/dL (1.6-2.3); Potassium 3.8 mmol/L (3.4-5.0); Sodium 141 mmol/L (137-145)
[2020-09-12 06:41] LABS: Glucose Point of Care 273 (65-105)
[2020-09-12] MEDS: ENOXAPARIN 40 MG/0.4 ML SYRINGE SUB-Q ×2 (08:26→20:53)
[2020-09-12] MEDS: DEXAMETHASONE 2 MG TABLET 6 MG PO (08:44)
[2020-09-12] MEDS: FAMOTIDINE 20 MG TABLET PO ×2 (08:44→20:53)
[2020-09-12] MEDS: ASCORBIC ACID 500 MG TABLET PO (08:44)
[2020-09-12] MEDS: CHOLECALCIFEROL 1,000 UNITS TABLET 4000 UNITS PO (08:44)
[2020-09-12] MEDS: ZINC SULFATE 220 MG CAPSULE PO (08:44)
--- NOTE | 2020-09-12 12:35 | PM.IMPN ---
Progress Note: A&P Assessment and Plan (1) COVID-19: Code(s): U07.1 - COVID-19 Status: Acute Assessment and Plan: -Started on iv Remdesivir, dexamethasone 6mg daily and convalescent plasma. - Intubated now. - continue icu care (2) Respiratory failure, acute: Qualifiers: Respiratory failure complication: hypoxia Qualified Code(s): J96.01 - Acute respiratory failure with hypoxia Code(s): J96.00 - Acute respiratory failure, unspecified whether with hypoxia or hypercapnia Status: Acute Assessment and Plan: On mechanical ventilation, intubated 09/11. (3) Obesity (BMI 30.0-34.9): Code(s): E66.9 - Obesity, unspecified Status: Chronic (4) Diabetes: Code(s): E11.9 - Type 2 diabetes mellitus without complications Status: Acute Assessment and Plan: Poorly controlled now with dexamethasone. On ISS will defer management to ICU physician (5) Leukocytosis: Code(s): D72.829 - Elevated white blood cell count, unspecified Status: Acute Assessment and Plan: Likely secondary to dexamethasone and the underlying inflammatory response. Subjective Date/time seen: Pt seen and examined, she remains on mechanical ventilation. 09/12/20 12:35 Exam Narrative: Exam Narrative: Intubated , sedated. HENMT: Head: normal to inspection Resp: Other: Intubated, decreased breath sounds, mild rhonchi. Cardio: Rate: regular rate Rhythm: regular rhythm Skin: General skin exam: no rashes or lesions noted Neuro: Other: Intubated and sedated. Extrem: General: no clubbing, cyanosis or edema Objective Data Vital Signs Vital Signs: Vital Signs - 24 hr 09/11/20 13:00 09/11/20 13:15 09/11/20 13:48 Temperature Pulse Rate 93 92 Respiratory Rate 22 H Blood Pressure 130/76 Pulse Oximetry 09/11/20 14:00 09/11/20 14:49 09/11/20 15:00 Temperature 100.7 F H Pulse Rate 90 Respiratory Rate 24 H Blood Pressure 125/77 140/81 128/71 Pulse Oximetry 98 09/11/20 16:00 09/11/20 16:30 09/11/20 16:57 Temperature 100.2 F H Pulse Rate 86 88 Respiratory Rate 22 H Blood Pressure 131/79 129/76 Pulse Oximetry 97 94 09/11/20 18:00 09/11/20 18:06 09/11/20 20:00 Temperature 100.1 F H 99.8 F H Pulse Rate 84 84 74 Respiratory Rate 22 H 22 H Blood Pressure 119/79 119/79 125/76 Pulse Oximetry 97 96 09/11/20 21:09 09/11/20 21:34 09/11/20 22:00 Temperature Pulse Rate 74 80 74 Respiratory Rate 22 H Blood Pressure 114/76 107/71 Pulse Oximetry 97 98 09/11/20 22:44 09/11/20 23:00 09/11/20 23:35 Temperature Pulse Rate 74 Respiratory Rate Blood Pressure 113/69 Pulse Oximetry 97 95 09/12/20 00:00 09/12/20 00:40 09/12/20 02:00 Temperature 99.4 F 98.5 F Pulse Rate 74 66 Respiratory Rate 22 H 22 H Blood Pressure 107/71 109/71 Pulse Oximetry 92 96 97 09/12/20 02:06 09/12/20 02:10 09/12/20 02:22 Temperature Pulse Rate 68 67 65 Respiratory Rate 22 H 22 H Blood Pressure 109/71 Pulse Oximetry 96 09/12/20 04:00 09/12/20 04:57 09/12/20 06:00 Temperature 98.6 F 98.6 F Pulse Rate 66 66 67 Respiratory Rate 22 H 22 H Blood Pressure 103/74 84/53 L Pulse Oximetry 94 96 95 09/12/20 06:14 09/12/20 06:55 09/12/20 08:00 Temperature 99.0 F Pulse Rate 70 71 Respiratory Rate 22 H 22 H Blood Pressure 105/69 81/55 L 112/74 Pulse Oximetry 95 09/12/20 08:25 09/12/20 08:26 09/12/20 09:10 Temperature Pulse Rate 64 64 65 Respiratory Rate 22 H Blood Pressure 112/74 Pulse Oximetry 94 09/12/20 10:00 09/12/20 10:53 09/12/20 12:00 Temperature Pulse Rate 67 63 Respiratory Rate 22 H Blood Pressure 90/56 L Pulse Oximetry 96 96 97 Intake/Output Intake/Output: Intake & Output 09/09/20 09/10/20 09/11/20 09/12/20 23:59 23:59 23:59 23:59 Intake Total 1110 1100 472 809 Output Total 238 271 6470 450 Balance 410 300 -5
[2020-09-12 13:42] LABS: Glucose Point of Care 268 (65-105)
--- NOTE | 2020-09-12 15:22 | WPDINTPN ---
Progress Note: A&P Assessment and Plan (1) Acute respiratory disease due to COVID-19 virus: Code(s): U07.1 - COVID-19; J06.9 - Acute upper respiratory infection, unspecified Status: Acute Assessment and Plan: acute hypoxic respiratory failure secondary to COVID-19 [facility] Admitted 09/06, Air Vo 09/07, intubated 09/11 chest x-ray and ABGs reviewed, ventilator adjusted Patient is in Airborne, Droplet and Contact Isolation status post course of Remdesivir Continue dexamethasone Convalescent plasma 1 unit given 09/07 with Lasix BNP unremarkable Monitor inflammatory markers Bronchodilators Pt is on zinc, vitamin c and d (2) Hyperlipidemia: Code(s): E78.5 - Hyperlipidemia, unspecified Status: Acute Assessment and Plan: hold statin due to elevated liver enzymes which are improving (3) Elevated liver enzymes: Code(s): R74.8 - Abnormal levels of other serum enzymes Status: Acute Assessment and Plan: most likely secondary to fatty liver from obesity Right upper quadrant ultrasound showed hepatic steatosis levels improving (4) Leukocytosis: Code(s): D72.829 - Elevated white blood cell count, unspecified Status: Acute Assessment and Plan: likely secondary to steroids improving, continue to monitor Additional Plan Diet: tolerating tube feeds DVT prophylaxis: intermediate does lovenox 40mg BID for COVID 19. Code status: patient wishes to be Full code. Right upper extremity PICC line in place Total Critical Care Time - 34 minutes Due to a high probability of clinically significant, life threatening deterioration, the patient required my highest level of preparedness to intervene emergently and I personally spent this critical care time directly and personally managing the patient. This critical care time included obtaining a history; examining the patient; pulse oximetry; ordering and review of studies; arranging urgent treatment with development of a management plan; evaluation of patient's response to treatment; frequent reassessment; and discussions with other providers. It was exclusive of separately billable procedures and treating other patients and teaching time. Please see Assessment and Plan section and the rest of the note for further information on patient assessment and treatment Subjective Date/time seen: 09/12/20 15:22 Interval history: Petty Germain is a 55 year old female with past medical history hyperlipidemia and obesity presents to the ED with chief complaint of shortness of breath, fever. COVID-19 test positive 09/04/2020 from [facility]. Worsening oxygenation on the medical floor, was transfer the ICU where she was placed on BiPAP, failed BiPAP and was intubated on 09/11/2020. - received convalescent plasma on 09/07/2020 09/12/2020: Patient seen and examined, remains intubated on 55% FiO2, peep of 12, CMV mode of ventilation. Patient is afebrile, urine output has been adequate. Patient remains on Levophed at 2 mcg/min. on Versed 2 mg/hr and fentanyl 100 mcg/hr infusion for sedation. Does not open her eyes or follow simple commands. LFTs trending down, ferritin LDH are elevated, WBC count elevated red trending down. Review of Systems Review of Systems: ROS unobtainable: Yes unobtainable due to endotracheal tube Exam Narrative: Exam Narrative: General: Pt is now sedated, intubated and on mechanical ventilation Lungs/Chest: Trachea central Coarse BS B/L, No crackles or wheezing. Cardiac: RRR. Normal S1 S2. No murmurs Circulation: Pedal pulses are intact and symmetrical. Abdomen: normal bowel sounds. Obese. Soft. NT. ND. Extremities: No clubbing, cyanosis or edema. Warm : Nñio in place Neurologic: Unable to assess due to sedation. but prior to intubation she was alert awake and following commandsPERRL Const: General: comfortable and no acute distress HENMT: Ot
[2020-09-12] MEDS: ACETAMINOPHEN 325 MG TABLET 650 MG PO (17:13)
[2020-09-12 17:44] LABS: Glucose Point of Care 248 (65-105)
[2020-09-12 23:34] LABS: Glucose Point of Care 192 (65-105)
[2020-09-13] VITALS (32 sets, daily range): BP systolic 91–146; BP diastolic 54–81; PULSE 60–113; RESP 19–32; TEMP 37.5–40.3; O2SAT 90–98
[2020-09-13] MEDS: ACETAMINOPHEN 325 MG TABLET 650 MG PO (01:55)
[2020-09-13] MEDS: IBUPROFEN IV 400 MG in SODIUM CHLORIDE 0.9% IV 100 ML 200 MG IVPB (03:05)
[2020-09-13 05:02] LABS: Alveolar/Arterial O2 Gradient 332.6 mmHg; Arterial Blood Gas Vent Mode CMV; Arterial Blood Gas Ventilator rate 22 /MIN; Base Excess ABG 1.5 mEq/l (+/-2.0); Carboxyhemoglobin 0.3 % THb (0-2.0); Device VENTILATOR; Fractional Inspired Oxygen 60 %; Methemoglobin ABG 0.2 %THb (0-1.5); Modified Allen's Test Unable to perform; Oxygen Saturation ABG 90.9 % (95.0-100.0); Oxyhemoglobin 88.9 % THb (90.0-100.0); PCO2 ABG 35.7 mmHg (35.0-45.0); PO2 ABG 55.9 mmHg (80.0-100.0); PO2 FiO2 Ratio Arterial Blood 0.93 %; Reduced Hemoglobin 10.6 %THb (0-5.0); Site Drawn LEFT RADIAL; pH ABG 7.464 (7.350-7.450)
[2020-09-13 05:03] LABS: Arterial Blood Gas PEEP 12 cmH2O; Arterial Blood Gas Tidal Volume 400 ml
[2020-09-13 05:28] LABS: Hematocrit 33.6 % (37.0-47.0); Hemoglobin 11.1 g/dL (12.0-15.0); Mean Corpuscular Hemoglobin 29.9 pg (26-34); Mean Corpuscular Volume 90.6 fl (80-100); Mean Platelet Volume 10.6 fl (7.4-10.4); Platelet Count Result 205 k/mm3 (150-375); Red Blood Count 3.71 M/mm3 (4.2-5.4); Red Cell Distribution Width 13.5 % (11.5-14.5); White Blood Count 14.2 K/mm3 (4.5-10.0)
[2020-09-13 05:44] LABS: Alanine Aminotransferase 33 U/L (4-35); Albumin Level 2.7 g/dL (3.5-5.1); Alkaline Phosphatase 67 U/L (38-126); Anion Gap 4 mmol/L (8-16); Aspartate Amino Transferase 26 U/L (14-36); Bilirubin,Total 0.5 mg/dL (0.2-1.3); Blood Urea Nitrogen 36 mg/dL (7-17); Calcium 8.6 mg/dL (8.4-10.2); Carbon Dioxide 33 mmol/L (22-30); Chloride 102 mmol/L (98-107); Estimated CRCL calculation 70 ml/min; Estimated Glomerular Filt Rate > 60; Glucose 164 mg/dL (65-105); Lactate Dehydrogenase 1286 U/L (313-618); Magnesium 2.5 mg/dL (1.6-2.3); Phosphorus 3.2 mg/dL (2.5-4.5); Potassium 3.9 mmol/L (3.4-5.0); Sodium 139 mmol/L (137-145)
[2020-09-13 05:45] LABS: D Dimer 2.67 ug/mL (<0.48)
[2020-09-13 05:57] LABS: CRP 19.7 mg/dL (<1.0)
[2020-09-13] MEDS: CENTRAL LINE FLUSH 10 ML IV PUSH ×3 (06:35→21:20)
[2020-09-13] MEDS: ASCORBIC ACID 500 MG TABLET PO (07:59)
[2020-09-13] MEDS: ENOXAPARIN 40 MG/0.4 ML SYRINGE SUB-Q ×2 (08:32→21:19)
[2020-09-13] MEDS: FAMOTIDINE 20 MG TABLET PO ×2 (08:33→21:20)
[2020-09-13] MEDS: ZINC SULFATE 220 MG CAPSULE PO (08:33)
[2020-09-13] MEDS: CHOLECALCIFEROL 1,000 UNITS TABLET 4000 UNITS PO (08:33)
[2020-09-13] MEDS: DEXAMETHASONE SOD PHOS INJ 4 MG/ML VIAL 6 MG IV PUSH (08:34)
[2020-09-13 12:53] LABS: Glucose Point of Care 208 (65-105)
[2020-09-13] MEDS: INSULIN ASPART (*BKC) 100 UNITS/ML SUB-Q ×3 (12:56→23:36)
--- NOTE | 2020-09-13 13:07 | PCDIET ---
Nutrition Follow-Up Complete: Altered nutrition related labs likely related to steroid use as evidenced by serum glucose of 274mg/dL. Patient to meet estimated nutritional needs. Goal: Progressing towards goal. Continue goal. Pt current nutrition is Jevity 1.2 at 40ml/hr. Nutrition recommendation: Due to obese class three, recommend a higher protein formula, vital HP with potential for Glucerna 1.2 if blood sugars elevate. Last recorded weight is 86.9 kg, down from 88kg on admit. +373 I/O balance Bowel Motility: Last BM 09/10. Pt may benefit from motility agent Labs Reviewed:Ferritin 518, Mg 2.5, BUN 36 Glucose 164, Hct 33.62, Hgb 11.1. Meds Noted:Decadron, albuterol, fentanyl, versed, vitamin D, zinc, vitamin C Additional Notes: Pt at goal of Jevity 1.2 at 40ml/hr with 10 ml residual, tolerating well. Due to obese class two recommend a higher protein formula, Vital high protein at 50ml/hr to provide 1100 kcals, 96g protein, and 919ml of free water. Recommend motility agent to keep bowels moving. Agree with 30ml water flush q 4 hrs. We will continue to track nutrition tolerance and wt every Saturday/Saturday. Following daily in ICU rounds.
--- NOTE | 2020-09-13 14:17 | WPDINTPN ---
Progress Note: A&P Assessment and Plan (1) Acute respiratory disease due to COVID-19 virus: Code(s): U07.1 - COVID-19; J06.9 - Acute upper respiratory infection, unspecified Status: Acute Assessment and Plan: acute hypoxic respiratory failure secondary to COVID-19 SARS-CoV-2 PCR positive from [facility] 09/03/2020, Admitted 09/06, Air Vo 09/07, intubated 09/11 chest x-ray and ABGs reviewed, ventilator adjusted, increased FiO2 to 70%, Patient on peep of 12 Patient is in Airborne, Droplet and Contact Isolation status post course of Remdesivir Continue dexamethasone Convalescent plasma 1 unit given 09/07 with Lasix BNP unremarkable Monitor inflammatory markers Bronchodilators Pt is on zinc, vitamin c and d (2) Hyperlipidemia: Code(s): E78.5 - Hyperlipidemia, unspecified Status: Acute Assessment and Plan: hold statin due to elevated liver enzymes which are improving (3) Elevated liver enzymes: Code(s): R74.8 - Abnormal levels of other serum enzymes Status: Acute Assessment and Plan: most likely secondary to fatty liver from obesity Right upper quadrant ultrasound showed hepatic steatosis however enzymes have normalized, will continue to monitor (4) Leukocytosis: Code(s): D72.829 - Elevated white blood cell count, unspecified Status: Acute Assessment and Plan: likely secondary to steroids improving, continue to monitor Additional Plan Diet: tolerating tube feeds DVT prophylaxis: intermediate does lovenox 40mg BID for COVID 19. Right upper extremity PICC line in place discussed with patient's daughter and updated her with patient's condition and plan of care. I answered all questions Code status: patient wishes to be Full code. Total Critical Care Time - 32 minutes Due to a high probability of clinically significant, life threatening deterioration, the patient required my highest level of preparedness to intervene emergently and I personally spent this critical care time directly and personally managing the patient. This critical care time included obtaining a history; examining the patient; pulse oximetry; ordering and review of studies; arranging urgent treatment with development of a management plan; evaluation of patient's response to treatment; frequent reassessment; and discussions with other providers. It was exclusive of separately billable procedures and treating other patients and teaching time. Please see Assessment and Plan section and the rest of the note for further information on patient assessment and treatment Subjective Date/time seen: 09/13/20 14:17 Interval history: Petty Germain is a 55 year old female with past medical history hyperlipidemia and obesity presents to the ED with chief complaint of shortness of breath, fever. [facility] Worsening oxygenation on the medical floor, was transfer the ICU where she was placed on BiPAP, failed BiPAP and was intubated on 09/11/2020. - received convalescent plasma on 09/07/2020 09/13/2020: Patient remains intubated on CMV mode of ventilation, 60% FiO2, peep of 12. ABG shows hypoxia. On Levophed at 2 mcg/ minute. T-max of 103.4?. Sedated with fentanyl 50 mcg /hour and Versed 2 mg /hour infusions. Output has been adequate. Patient tolerating tube feeds. Ferritin, LDH and D-dimer declining, CRP elevated to 19.7. WBC trending down Review of Systems Review of Systems: ROS unobtainable: Yes unobtainable due to endotracheal tube Exam Const: General: comfortable and no acute distress HENMT: Other: ETT in place Eyes: Sclera: sclerae normal Pupils: Equal, round and reactive pupils present Neck: Neck: supple Resp: Effort & Inspection: normal respiratory effort Auscultation: rales, no wheezes and diminished lung sounds Cardio: Rate: regular rate Rhythm: regular rhythm GI: Inspection: non-distended GI Pa
[2020-09-13] MEDS: FENTANYL 2,500MCG/NS250ML(*CRX 2,500 MCG/250 ML BAG 12.5 MCG IV CONT (15:44)
--- NOTE | 2020-09-13 19:00 | PC.NURSE ---
Patient's fentanyl found to be running at 150 mcg/hr. Versed found to be running at 5 mg/hr.
[2020-09-13 21:33] LABS: Glucose Point of Care 218 (65-105)
[2020-09-13] MEDS: DORNASE ALFA INH SOLN 1 MG/ML 2.5 ML AMP 2.5 MG INHALATION (23:11)
[2020-09-13 23:51] LABS: Glucose Point of Care 218 (65-105)
[2020-09-14] VITALS (39 sets, daily range): BP systolic 92–129; BP diastolic 60–80; PULSE 56–99; RESP 18–34; TEMP 37.2–38.8; O2SAT 90–100
[2020-09-14 04:55] LABS: Alveolar/Arterial O2 Gradient 467.8 mmHg; Base Excess ABG 4.5 mEq/l (+/-2.0); Fractional Inspired Oxygen 80 %; HCO3 ABG 28.6 mEq/l (22.0-26.0); Methemoglobin ABG 0.1 %THb (0-1.5); Oxygen Content ABG 15.2 %vol (16.0-22.0); Oxygen Saturation ABG 92.1 % (95.0-100.0); Oxyhemoglobin 90.8 % THb (90.0-100.0); PCO2 ABG 41.1 mmHg (35.0-45.0); PO2 ABG 59.5 mmHg (80.0-100.0); PO2 FiO2 Ratio Arterial Blood 0.74 %; Reduced Hemoglobin 9.1 %THb (0-5.0); Total Hemoglobin 11.9 g/dL (12.0-18.0); pH ABG 7.461 (7.350-7.450)
[2020-09-14 04:57] LABS: Device VENTILATOR; Modified Allen's Test Pass; Site Drawn RIGHT RADIAL
[2020-09-14 04:58] LABS: Arterial Blood Gas PEEP 12 cmH2O; Arterial Blood Gas Tidal Volume 400 ml; Arterial Blood Gas Vent Mode CMV; Arterial Blood Gas Ventilator rate 22 /MIN
[2020-09-14 05:45] LABS: Hematocrit 32.6 % (37.0-47.0); Hemoglobin 10.5 g/dL (12.0-15.0); Mean Corpuscular HGB Conc 32.2 g/dl (32-36); Mean Corpuscular Hemoglobin 29.7 pg (26-34); Mean Corpuscular Volume 92.4 fl (80-100); Mean Platelet Volume 10.7 fl (7.4-10.4); Platelet Count Result 215 k/mm3 (150-375); Red Blood Count 3.53 M/mm3 (4.2-5.4); Red Cell Distribution Width 13.6 % (11.5-14.5); White Blood Count 15.5 K/mm3 (4.5-10.0)
[2020-09-14] MEDS: CENTRAL LINE FLUSH 20 ML IV PUSH (05:49)
[2020-09-14] MEDS: CENTRAL LINE FLUSH 10 ML IV PUSH ×2 (05:49→13:21)
[2020-09-14 05:56] LABS: Alanine Aminotransferase 32 U/L (4-35); Albumin Level 2.7 g/dL (3.5-5.1); Alkaline Phosphatase 76 U/L (38-126); Anion Gap 2 mmol/L (8-16); Aspartate Amino Transferase 24 U/L (14-36); Bilirubin,Total 0.5 mg/dL (0.2-1.3); Blood Urea Nitrogen 30 mg/dL (7-17); Calcium 8.6 mg/dL (8.4-10.2); Carbon Dioxide 33 mmol/L (22-30); Chloride 101 mmol/L (98-107); Estimated CRCL calculation 106 ml/min; Estimated Glomerular Filt Rate > 60; Glucose 224 mg/dL (65-105); Magnesium 2.5 mg/dL (1.6-2.3); Phosphorus 3.6 mg/dL (2.5-4.5); Potassium 4.3 mmol/L (3.4-5.0); Sodium 136 mmol/L (137-145)
[2020-09-14] MEDS: INSULIN ASPART (*BKC) 100 UNITS/ML SUB-Q ×2 (06:47→18:22)
[2020-09-14] MEDS: DORNASE ALFA INH SOLN 1 MG/ML 2.5 ML AMP 2.5 MG INHALATION ×2 (09:45→21:15)
[2020-09-14] MEDS: DEXAMETHASONE SOD PHOS INJ 4 MG/ML VIAL 6 MG IV PUSH (09:46)
[2020-09-14] MEDS: ENOXAPARIN 40 MG/0.4 ML SYRINGE SUB-Q ×2 (09:46→20:31)
[2020-09-14] MEDS: CHOLECALCIFEROL 1,000 UNITS TABLET 4000 UNITS PO (09:47)
[2020-09-14] MEDS: ZINC SULFATE 220 MG CAPSULE PO (09:47)
[2020-09-14] MEDS: FAMOTIDINE 20 MG TABLET PO ×2 (09:47→20:31)
[2020-09-14] MEDS: ASCORBIC ACID 500 MG TABLET PO (09:47)
[2020-09-14] MEDS: FENTANYL 2,500MCG/NS250ML(*CRX 2,500 MCG/250 ML BAG 15 MCG IV CONT (09:59)
--- NOTE | 2020-09-14 11:37 | PM.IMPN ---
Progress Note: A&P Assessment and Plan (1) COVID-19: Code(s): U07.1 - COVID-19 Status: Acute Assessment and Plan: -dexamethasone 6mg daily and convalescent plasma. - Intubated now. - continue icu care (2) Respiratory failure, acute: Qualifiers: Respiratory failure complication: hypoxia Qualified Code(s): J96.01 - Acute respiratory failure with hypoxia Code(s): J96.00 - Acute respiratory failure, unspecified whether with hypoxia or hypercapnia Status: Acute Assessment and Plan: On mechanical ventilation, intubated 09/11, reintubated 09/14. (3) Obesity (BMI 30.0-34.9): Code(s): E66.9 - Obesity, unspecified Status: Chronic (4) Diabetes: Qualifiers: Diabetes mellitus type: type 2 Diabetes mellitus detention insulin use: without detention use Diabetes mellitus complication status: without complication Qualified Code(s): E11.9 - Type 2 diabetes mellitus without complications Code(s): E11.9 - Type 2 diabetes mellitus without complications Status: Acute Assessment and Plan: Poorly controlled now with dexamethasone. On ISS will defer management to ICU physician (5) Leukocytosis: Qualifiers: Leukocytosis type: leukemoid reaction Qualified Code(s): D72.823 - Leukemoid reaction Code(s): D72.829 - Elevated white blood cell count, unspecified Status: Acute Assessment and Plan: Likely secondary to dexamethasone and the underlying inflammatory response. Additional Plan #COVID-19 pneumonia #obesity BMI 34.6 - positive test from [facility] 09/03/2020 - elevated inflammatory markers ferritin, LDH, crp - supplemental oxygen to keep oxygen saturation greater than 90%, on 6 L currently - comorbidities of obesity - completed Remdesivir, continue dexamethasone 6mg daily - MDI: albuterol - incentive spirometry - starting supplements zinc, vitamin c and d Diet: NPO DVT prophylaxis: Lovenox 40mg BID for COVID 19 Code status: Full code Disposition: ICU Subjective Date/time seen: 09/14/20 11:37 patient examined bedside. Patient intubated, sedated. she had to be reintubated today when ET tube fell out. COVID-19 09/03/2020, intubated 09/11 and now reintubated 09/14. Convalescent plasma given on 09/07. FiO2 at 70% with peep up to 14. Following bedspread seamer management. Review of Systems Review of Systems: ROS unobtainable: Yes unobtainable due to endotracheal tube Exam Narrative: Exam Narrative: - GENERAL: intubated, sedated woman - HENT: ETT in place - LUNGS: diminished lung sounds - CARDIOVASCULAR: Regular rate and rhythm. No murmur. No JVD. - ABDOMEN: Soft, bowel sounds present - : nugent catheter in place - EXTREMITIES: No edema. Peripheral pulses 2+. Non-tender. - NEUROLOGIC: unable to assess intubated sedated - PSYCHIATRIC: Unable to assess intubated sedated Objective Data Vital Signs Vital Signs: Vital Signs - 24 hr 09/13/20 12:00 09/13/20 14:00 09/13/20 14:55 Temperature 38.2 C H Pulse Rate 80 72 83 Respiratory Rate 24 H 25 H Blood Pressure 121/72 91/61 L Pulse Oximetry 91 93 94 09/13/20 15:44 09/13/20 16:00 09/13/20 17:52 Temperature 37.5 C Pulse Rate 73 74 71 Respiratory Rate 27 H 24 H Blood Pressure 133/55 L Pulse Oximetry 90 91 09/13/20 18:00 09/13/20 19:00 09/13/20 20:00 Temperature 37.8 C H Pulse Rate 76 69 74 Respiratory Rate 30 H 22 H 26 H Blood Pressure 104/54 L 109/66 Pulse Oximetry 91 93 09/13/20 20:38 09/13/20 21:13 09/13/20 21:28 Temperature 37.9 C H 37.7 C H Pulse Rate 73 Respiratory Rate Blood Pressure Pulse Oximetry 96 09/13/20 21:43 09/13/20 22:00 09/13/20 23:11 Temperature 37.7 C H 37.8 C H Pulse Rate 70 60 Respiratory Rate 21 H 24 H Blood Pressure 95/59 L Pulse Oximetry 96 98 09/13/20 23:17 09/14/20 00:00 09/14/20 02:00 Temperature 37.4 C 37.2 C Pulse Rate 60 60 60 Respiratory Ra
--- NOTE | 2020-09-14 12:00 | PCFNICU ---
ICU Rounding Note: Pt current nutrition is Glucerna 1.2 at 40 ml/hr. Nutrition recommendation:Agree Last recorded weight is 86.7 kg down from 88 kg on admit. Bowel Motility:NO BM reported. Miralax started today. Labs Reviewed:Mg 2.5,Na 136,Alb 2.7,BUN 30,Hct 32.6,Hgb 10.5 Meds Noted:Vit D, Zinc,Vit C, Fentanyl, Versed, Levophed. Additional Notes: Patient remains on mechanical ventilator. Tube feedings of Glucerna 1.2 at 40 ml/hr remain. Patient is tolerating feedings per nursing. Blood sugars reported elevated 218,218,208. Agree with tube feeding formula at this time. Recommend tube feeding goal rate at 55 ml/hr which will provide 1452 kcals/72 gms protein/974 ml water. PICC and Niño in place. No skin issues noted. Following daily in ICU rounds. Assessing/reassessing every Saturday and Saturday.
[2020-09-14] MEDS: polyethylene glycoL 3350 17 GM POWD.PACK PO (13:20)
[2020-09-14 13:31] LABS: Glucose Point of Care 137 (65-105)
--- NOTE | 2020-09-14 14:39 | WPDINTPN ---
Progress Note: A&P Assessment and Plan (1) Acute respiratory disease due to COVID-19 virus: Code(s): U07.1 - COVID-19; J06.9 - Acute upper respiratory infection, unspecified Status: Acute Assessment and Plan: acute hypoxic respiratory failure secondary to COVID-19 [facility] Admitted 09[facility], Air Vo 09/07, intubated 09/11 chest x-ray and ABGs reviewed, ventilator adjusted, increased FiO2 to 70%, Patient on peep of 12 will increase PEEP of 14 due to hypoxemia on ABG - patient tongued out her ET tube, patient was reintubated on 09/14/2020, as she was desaturated Patient is in Airborne, Droplet and Contact Isolation status post course of Remdesivir Continue dexamethasone Convalescent plasma 1 unit given 09/07 with Lasix BNP unremarkable Monitor inflammatory markers Bronchodilators Pt is on zinc, vitamin c and d (2) Hyperlipidemia: Code(s): E78.5 - Hyperlipidemia, unspecified Status: Acute Assessment and Plan: hold statin due to elevated liver enzymes which are improving (3) Elevated liver enzymes: Code(s): R74.8 - Abnormal levels of other serum enzymes Status: Acute Assessment and Plan: most likely secondary to fatty liver from obesity Right upper quadrant ultrasound showed hepatic steatosis however enzymes have normalized, will continue to monitor (4) Leukocytosis: Code(s): D72.829 - Elevated white blood cell count, unspecified Status: Acute Assessment and Plan: likely secondary to steroids improving, continue to monitor Additional Plan Diet: tolerating tube feeds DVT prophylaxis: intermediate does lovenox 40mg BID for COVID 19. Right upper extremity PICC line in place 09/14/2020 discussed with patient's daughter Chaim and updated her with patient's condition and plan of care. I answered all questions Code status: Full code. Total Critical Care Time - 41 minutes Due to a high probability of clinically significant, life threatening deterioration, the patient required my highest level of preparedness to intervene emergently and I personally spent this critical care time directly and personally managing the patient. This critical care time included obtaining a history; examining the patient; pulse oximetry; ordering and review of studies; arranging urgent treatment with development of a management plan; evaluation of patient's response to treatment; frequent reassessment; and discussions with other providers. It was exclusive of separately billable procedures and treating other patients and teaching time. Please see Assessment and Plan section and the rest of the note for further information on patient assessment and treatment Subjective Date/time seen: 09/14/20 14:39 Interval history: Petty Germain is a 55 year old female with past medical history hyperlipidemia and obesity presents to the ED with chief complaint of shortness of breath, fever. COVID-19 test positive 09/04/2020 from [facility]. Worsening oxygenation on the medical floor, was transfer the ICU where she was placed on BiPAP, failed BiPAP and was intubated on 09/11/2020. - received convalescent plasma on 09/07/2020 09/14/2020: Patient remains intubated on CMV mode of ventilation, 80% FiO2, peep of 12. Patient somehow tongued her ETT tube, patient was successfully intubated. patient remains on fentanyl 150 mcg/ hour and Versed 4 mg/ hour for sedation. Patient is off Levophed. Has been febrile with a T-max of 101.8?, urine output has been adequate pain hemodynamically stable. Patient is tolerating tube feeds Review of Systems Review of Systems: ROS unobtainable: Yes unobtainable due to endotracheal tube Exam Narrative: Exam Narrative: Const: General: comfortable and no acute distress HENMT: Other: ETT in place Eyes: Sclera: sclerae normal Pupils: Equal, round and reactive pupils present Neck: Nec
--- NOTE | 2020-09-14 15:20 | P.PCNBED_ITS ---
Procedures Intubation Intubation Date: 09/14/20 Consent: patient's ETT was out, so re-intubated her with a 7.5 mm ETT A pre-procedural Time-Out was completed immediately before starting the procedure and confirmed: Patient Identification, Site, Procedure, Patient P osition and the Availability of Requisite Equipment: Yes Sedative: etomidate Paralytic: rocuronium Laryngoscope: fiber optic video scope Assist device used: fiber optic device ET tube size: 7.5 Tube secured depth (cm): 23 Tube secured location: lips Tube placement confirmation: visualized tube passing through cords, equal breath sounds bilaterally and no breath sounds over epigastrium Patient tolerated procedure: well Intubation complications: none Additional comments: chest x-ray reviewed, ET tube in appropriate position - patient had tongued the ET tube out, so had to be reintubated
[2020-09-14 18:48] LABS: Glucose Point of Care 255 (65-105)
--- NOTE | 2020-09-14 22:19 | PC.NURSE ---
Acetaminophen 1000 mg ivpb given at 2030, patient remains febrile, 101.0. Ice bags placed in groin.
[2020-09-14 23:34] LABS: Glucose Point of Care 206 (65-105)
[2020-09-15] VITALS (29 sets, daily range): BP systolic 100–136; BP diastolic 53–80; PULSE 52–74; RESP 22–29; TEMP 36.8–39.2; O2SAT 88–100
[2020-09-15] MEDS: INSULIN ASPART (*BKC) 100 UNITS/ML SUB-Q ×4 (00:26→23:57)
[2020-09-15] MEDS: FENTANYL 2,500MCG/NS250ML(*CRX 2,500 MCG/250 ML BAG 17.5 MCG IV CONT ×2 (00:27→14:15)
[2020-09-15] MEDS: CENTRAL LINE FLUSH 10 ML IV PUSH ×4 (00:31→20:50)
[2020-09-15 02:09] LABS: Alveolar/Arterial O2 Gradient 613.9 mmHg; Base Excess ABG 4.5 mEq/l (+/-2.0); Carboxyhemoglobin 0.6 % THb (0-2.0); Fractional Inspired Oxygen 100 %; HCO3 ABG 29.8 mEq/l (22.0-26.0); Methemoglobin ABG 0.1 %THb (0-1.5); Oxygen Content ABG 14.5 %vol (16.0-22.0); Oxyhemoglobin 84.8 % THb (90.0-100.0); PCO2 ABG 47.7 mmHg (35.0-45.0); PO2 ABG 51.4 mmHg (80.0-100.0); PO2 FiO2 Ratio Arterial Blood 0.51 %; Reduced Hemoglobin 14.5 %THb (0-5.0); Total Hemoglobin 12.2 g/dL (12.0-18.0); pH ABG 7.414 (7.350-7.450)
[2020-09-15 02:11] LABS: Arterial Blood Gas Vent Mode CMV; Arterial Blood Gas Ventilator rate 22 /MIN; Device VENTILATOR; Modified Allen's Test Pass; Oxygen Saturation ABG 86.5 % (95.0-100.0); Site Drawn RIGHT RADIAL
[2020-09-15 02:12] LABS: Arterial Blood Gas PEEP 14 cmH2O; Arterial Blood Gas Tidal Volume 400 ml
--- NOTE | 2020-09-15 02:53 | P.PNCROSS_ITS ---
Event Note Event Note Event Note: Short Order Fry Cook Note this is a 55-year-old female who is being treated for COVID pneumonia on mechanical ventilation with a PEEP of 14 who tonight suddenly desaturated to the mid 80s and chest x-ray was obtained. Radiologist has called me directly to tell me that the patient has a large left-sided pneumothorax. I have called our general surgeon on-call, Dr. Stanley, who agrees to come in in place chest tube. Nursing staff has called our registered massage therapist, Dr. Nuno to update him on the patient's current clinical condition.
--- NOTE | 2020-09-15 03:53 | PM.CNGS ---
Assessment and Plan Assessment and plan (1) Pneumothorax, left: Code(s): J93.9 - Pneumothorax, unspecified Status: Acute Assessment and Plan: will place emergent left chest tube for resolution as patient continues on mechanical ventilator with hypoxemia. (2) Acute respiratory disease due to COVID-19 virus: Code(s): U07.1 - COVID-19; J06.9 - Acute upper respiratory infection, unspecified Status: Acute (3) Ventilator induced barotrauma: Code(s): T88.9XXA - Complication of surgical and medical care, unspecified, initial encounter Status: Acute Assessment and Plan: Peep has been reduced. History of Present Illness Consult details Consult date: 09/15/20 Reason for consult: chest tube Narrative: patient is a 55-year-old woman who is in the intensive care unit on mechanical ventilator with high PEEP settings. She has COVID-19. Her saturations dropped her medically early this morning. A chest x-ray showed she had a large left pneumothorax. I was called to see the patient for chest tube placement. She is sedated on the mechanical ventilator. Review of Systems Review of Systems: ROS unobtainable: Yes unobtainable due to endotracheal tube and unobtainable due to medical condition PMFSH Past Medical History Medical History Hyperlipidemia Obesity (BMI 30.0-34.9) Family History Family History Mother Alcoholism Social History Social History Social History: Daughter lives in [facility] Smoking status: Never smoker Alcohol intake: never Substance use: never Living arrangements: alone Occupation/Education: occupation Additional occupation/education comments: works at [employer] Spiritual care concerns: No Meds Home Medications and Allergies Home Medications Medication Instructions Recorded Confirmed Type No Home Medications 09/06/20 09/06/20 History Allergies Allergy/AdvReac Type Severity Reaction Status Date / Time No Known Allergies Allergy Verified 09/06/20 23:06 Vital Signs Vital Signs - 24 hr 09/14/20 04:00 09/14/20 04:06 09/14/20 04:45 Temperature 37.2 C Pulse Rate 60 62 64 Respiratory Rate 22 H Blood Pressure 109/68 Pulse Oximetry 97 97 96 09/14/20 05:40 09/14/20 05:42 09/14/20 06:00 Temperature 38.4 C H Pulse Rate 66 67 69 Respiratory Rate 20 22 H 22 H Blood Pressure 115/72 Pulse Oximetry 95 09/14/20 06:46 09/14/20 07:09 09/14/20 08:00 Temperature 38.8 C H 38.3 C H 38.3 C H Pulse Rate 91 Respiratory Rate 29 H Blood Pressure 96/61 L Pulse Oximetry 93 09/14/20 09:40 09/14/20 09:59 09/14/20 10:00 Temperature 38.4 C H Pulse Rate 82 76 91 Respiratory Rate 22 H 29 H Blood Pressure 129/80 Pulse Oximetry 97 93 09/14/20 12:00 09/14/20 13:19 09/14/20 14:00 Temperature 38.6 C H 38.6 C H 38.2 C H Pulse Rate 91 59 L Respiratory Rate 22 H 22 H Blood Pressure 102/65 99/65 L Pulse Oximetry 99 99 09/14/20 14:28 09/14/20 14:38 09/14/20 14:40 Temperature 38.1 C H Pulse Rate 58 L 60 Respiratory Rate 22 H Blood Pressure Pulse Oximetry 99 09/14/20 14:41 09/14/20 15:29 09/14/20 16:00 Temperature 37.6 C H Pulse Rate 58 L 57 L 59 L Respiratory Rate 22 H 22 H Blood Pressure 92/60 L Pulse Oximetry 100 97 09/14/20 16:59 09/14/20 18:00 09/14/20 18:28 Temperature 37.7 C H Pulse Rate 60 64 66 Respiratory Rate 22 H 24 H Blood Pressure 95/65 L Pulse Oximetry 97 94 09/14/20 18:29 09/14/20 20:00 09/14/20 20:28 Temperature 38.6 C H Pulse Rate 66 66 71 Respiratory Rate 23 H 34 H 22 H Blood Pressure 105/65 Pulse Oximetry 90 09/14/20 20:29 09/14/20 20:38 09/14/20 20:39 Temperature 38.3 C H Pulse Rate 70 79 Respiratory Rate 22 H 34 H Blood Pressure Pulse Oximet
--- NOTE | 2020-09-15 04:01 | PM.PROC ---
Procedure Note - Detailed Date of procedure: 09/15/20 Pre-op diagnosis: Left pneumothorax left pneumothorax Post-op diagnosis: same Procedure performed: placement left chest tube Description of procedure: the patient was sedated on mechanical ventilator in the intensive care unit. The left anterolateral chest was prepped and draped. The proposed placement site was over the upper outer quadrant of the left breast at approximately the 6th rib in the anterolateral chest. A small incision was made in this area. Dissection was carried down to the the ribs and intercostal muscles. Going over the 5th or 6th rib, I was able to pass into the pleural space. A montero of air came forth. I then used a #28 [place] trocar chest tube and passed this into the left pleural space. It was advanced towards the lung apex. It was then sutured in place with 2 0 silk and attached to Pleur-Evac suction. Sterile occlusive dressing was then placed. Patient remained sedated and comfortable during the surgery. Anesthesia: none ( patient heavily sedated on mechanical ventilator) Surgeon: Bebeto Stanley MD Estimated blood loss (mL): 5 Drains: Yes ( left chest tube) Pathology: none sent Complications: None Condition: critical Disposition: no change Findings: postprocedure chest x-ray shows chest tube in good position with full re-expansion of the left lung.
[2020-09-15 04:11] LABS: Hematocrit 31.3 % (37.0-47.0); Hemoglobin 9.8 g/dL (12.0-15.0); Mean Corpuscular HGB Conc 31.3 g/dl (32-36); Mean Corpuscular Hemoglobin 29.3 pg (26-34); Mean Corpuscular Volume 93.7 fl (80-100); Mean Platelet Volume 11.4 fl (7.4-10.4); Platelet Count Result 242 k/mm3 (150-375); Red Blood Count 3.34 M/mm3 (4.2-5.4); White Blood Count 15.9 K/mm3 (4.5-10.0)
[2020-09-15 04:22] LABS: D Dimer 2.16 ug/mL (<0.48)
[2020-09-15 06:51] LABS: Alveolar/Arterial O2 Gradient 592.9 mmHg; Base Excess ABG 3.6 mEq/l (+/-2.0); Carboxyhemoglobin 0.3 % THb (0-2.0); Fractional Inspired Oxygen 100 %; HCO3 ABG 28.5 mEq/l (22.0-26.0); Methemoglobin ABG 0.1 %THb (0-1.5); Oxygen Content ABG 14.7 %vol (16.0-22.0); Oxygen Saturation ABG 95.4 % (95.0-100.0); PCO2 ABG 44.4 mmHg (35.0-45.0); PO2 ABG 75.7 mmHg (80.0-100.0); PO2 FiO2 Ratio Arterial Blood 0.76 %; Reduced Hemoglobin 5.6 %THb (0-5.0); Total Hemoglobin 11.1 g/dL (12.0-18.0); pH ABG 7.425 (7.350-7.450)
[2020-09-15 06:52] LABS: Device VENTILATOR; Modified Allen's Test Pass; Site Drawn RIGHT RADIAL
[2020-09-15 06:53] LABS: Arterial Blood Gas PEEP 12 cmH2O; Arterial Blood Gas Tidal Volume 400 ml; Arterial Blood Gas Vent Mode CMV; Arterial Blood Gas Ventilator rate 22 /MIN
[2020-09-15 06:58] LABS: Glucose Point of Care 190 (65-105)
[2020-09-15] MEDS: DORNASE ALFA INH SOLN 1 MG/ML 2.5 ML AMP 2.5 MG INHALATION ×2 (08:00→21:41)
[2020-09-15 08:36] LABS: Alanine Aminotransferase 38 U/L (4-35); Albumin Level 2.4 g/dL (3.5-5.1); Alkaline Phosphatase 96 U/L (38-126); Anion Gap 11 mmol/L (8-16); Aspartate Amino Transferase 32 U/L (14-36); Bilirubin,Total 0.4 mg/dL (0.2-1.3); Blood Urea Nitrogen 36 mg/dL (7-17); Calcium 8.6 mg/dL (8.4-10.2); Carbon Dioxide 23 mmol/L (22-30); Chloride 105 mmol/L (98-107); Estimated CRCL calculation 106 ml/min; Estimated Glomerular Filt Rate > 60; Glucose 276 mg/dL (65-105); Lactate Dehydrogenase 1475 U/L (313-618); Magnesium 2.6 mg/dL (1.6-2.3); Phosphorus 4.3 mg/dL (2.5-4.5); Potassium 5.3 mmol/L (3.4-5.0); Sodium 139 mmol/L (137-145)
[2020-09-15 09:27] LABS: CRP > 45.0 mg/dL (<1.0)
[2020-09-15] MEDS: polyethylene glycoL 3350 17 GM POWD.PACK PO (09:48)
[2020-09-15] MEDS: ENOXAPARIN 40 MG/0.4 ML SYRINGE SUB-Q ×2 (09:48→20:49)
[2020-09-15] MEDS: CHOLECALCIFEROL 1,000 UNITS TABLET 4000 UNITS PO (09:48)
[2020-09-15] MEDS: ASCORBIC ACID 500 MG TABLET PO (09:48)
[2020-09-15] MEDS: ZINC SULFATE 220 MG CAPSULE PO (09:49)
[2020-09-15] MEDS: FAMOTIDINE 20 MG TABLET PO ×2 (09:49→20:49)
[2020-09-15] MEDS: DEXAMETHASONE SOD PHOS INJ 4 MG/ML VIAL 6 MG IV PUSH (09:51)
--- NOTE | 2020-09-15 11:41 | PCDIET ---
ICU Rounding Note: Pt current nutrition is Jevity 1.2 at 40ml/hr. Nutrition recommendation: Recommend Vital HP at 50ml/hr for added protein due obese class 2 Last recorded weight is 86.7kg, steady from Tues Bowel Motility:none, miralax on board Labs Reviewed: Hgb/Hct 9.8, 31.3, Ablumin 2.4, K 5.3, C Reactive over 45, Glucose 276 Meds Noted: Versed, Vitamin C, Novolog, Miralax, Decadron, Fentanyl, Lovenox, Vitamin D, Zinc Additional Notes: Pt tolerating Jevity 1.2 at goal of 40ml/hr providing 1056 kcals. If enteral nutrition continues, recommend added protein with Vital HP @ 50ml/hr to provide 1100 kcals and 96g protein vs 49g. Following daily in ICU rounds. Assessing/reassessing q t/f.
--- NOTE | 2020-09-15 14:14 | WPDINTPN ---
Progress Note: A&P Assessment and Plan (1) Acute respiratory disease due to COVID-19 virus: Code(s): U07.1 - COVID-19; J06.9 - Acute upper respiratory infection, unspecified Status: Acute Assessment and Plan: acute hypoxic respiratory failure secondary to COVID-19 SARS-CoV-2 PCR positive from [facility] 09/03/2020, Admitted 09/06, Air Vo 09/07, intubated 09/11 - patient tongued out her ET tube, patient was reintubated on 09/14/2020, as she was desaturated - in the early hours of 09/15/2020, patient was desaturating overnight, chest x-ray showed moderate pneumothorax, surgery was consulted inserted chest tube on the left side. Post chest tube x-ray showed resolution of the pneumothorax. - Patient remains on 100% FiO2 and peep of 12. Will wean FiO2 as tolerated Patient is in Airborne, Droplet and Contact Isolation status post course of Remdesivir Continue dexamethasone Convalescent plasma 1 unit given 09/07 with Lasix BNP unremarkable Monitor inflammatory markers Bronchodilators Pt is on zinc, vitamin c and d (2) Hyperlipidemia: Code(s): E78.5 - Hyperlipidemia, unspecified Status: Acute Assessment and Plan: hold statin due to elevated liver enzymes which are improving (3) Elevated liver enzymes: Code(s): R74.8 - Abnormal levels of other serum enzymes Status: Acute Assessment and Plan: most likely secondary to fatty liver from obesity Right upper quadrant ultrasound showed hepatic steatosis however enzymes have normalized, will continue to monitor (4) Leukocytosis: Qualifiers: Leukocytosis type: leukemoid reaction Qualified Code(s): D72.823 - Leukemoid reaction Code(s): D72.829 - Elevated white blood cell count, unspecified Status: Acute Assessment and Plan: likely secondary to steroids and stress response to pneumothorax improving, continue to monitor Additional Plan Diet: tolerating tube feeds DVT prophylaxis: intermediate does lovenox 40mg BID for COVID 19. Right upper extremity PICC line in place 09/14/2020 discussed with patient's daughter Chaim and updated her with patient's condition and plan of care. I answered all questions Code status: Full code. Total Critical Care Time - 34 minutes Due to a high probability of clinically significant, life threatening deterioration, the patient required my highest level of preparedness to intervene emergently and I personally spent this critical care time directly and personally managing the patient. This critical care time included obtaining a history; examining the patient; pulse oximetry; ordering and review of studies; arranging urgent treatment with development of a management plan; evaluation of patient's response to treatment; frequent reassessment; and discussions with other providers. It was exclusive of separately billable procedures and treating other patients and teaching time. Please see Assessment and Plan section and the rest of the note for further information on patient assessment and treatment Subjective Date/time seen: 09/15/20 14:14 Interval history: Petty Germain is a 55 year old female with past medical history hyperlipidemia and obesity presents to the ED with chief complaint of shortness of breath, fever. COVID-19 test positive 09/04/2020 from [facility]. Worsening oxygenation on the medical floor, was transfer the ICU where she was placed on BiPAP, failed BiPAP and was intubated on 09/11/2020. - received convalescent plasma on 09/07/2020 09/15/2020: patient desaturated the 70s overnight, stat chest x-ray showed moderate pneumothorax, chest tube was inserted by surgery. Repeat chest x-ray showed resolution of the pneumothorax. Patient remains on 100% FiO2, peep of 12 on CMV mode of ventilation. Sedated with fentanyl 175 mcg /hour and Versed 6 mg/hour. Levophed is off. T-max of 100.2?, decreased urine output. Patient does not open her eyes
--- NOTE | 2020-09-15 17:08 | PM.IMPN ---
Progress Note: A&P Assessment and Plan (1) COVID-19: Code(s): U07.1 - COVID-19 Status: Acute (2) Respiratory failure, acute: Qualifiers: Respiratory failure complication: hypoxia Qualified Code(s): J96.01 - Acute respiratory failure with hypoxia Code(s): J96.00 - Acute respiratory failure, unspecified whether with hypoxia or hypercapnia Status: Acute Assessment and Plan: On mechanical ventilation, intubated 09/11, reintubated 09/14. 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 (6) Pneumothorax, left: Code(s): J93.9 - Pneumothorax, unspecified Status: Acute (7) Ventilator induced barotrauma: Code(s): T88.9XXA - Complication of surgical and medical care, unspecified, initial encounter Status: Acute Additional Plan #COVID-19 pneumonia #acute hypoxic respiratory failure - positive test from [facility] 09/03/2020, continue isolation precautions - elevated inflammatory markers ferritin, LDH, crp - supplemental oxygen to keep oxygen saturation greater than 90% - completed Remdesivir, continue dexamethasone 6mg daily, convalescent plasma given 09/07 - intubated 09/11, reintubarted 09/14, chest tube placed overnight 09/15 by surgeon - peep down to 12 from 14, FiO2 100% - sedation: Fentanyl, Versed - starting Flolan 08/15 - MDI: albuterol - incentive spirometry - supplements zinc, vitamin c and d - started dornase #constipation -started miralax # left pneumothorax secondary to ventilator induced barotrauma -Dr. Bebeto Stanley placed chest tube last night with full re-expansion of left lung -Likely secondary to high peep of 14 and maybe underlying blebs -there is air leak in chest tube, unclear if there is nidus of air from the barotrauma with positive pressure pushing more air into pleural cavity # hyperglycemia #obesity BMI 34.6 -Checking hemoglobin A1c, likely increased blood sugars due to steroids -sliding-scale insulin coverage moderate dose Diet: tube feeds started DVT prophylaxis: Lovenox 40mg BID for COVID 19 GI prophylaxis: pepcid Code status: Full code Disposition: ICU Subjective Date/time seen: 09/15/20 17:08 patient exam. Discussed with pool coordinator. Overnight patient desaturated chest x-ray confirmed left-sided pneumothorax. Dr. Bebeto Stanley gentle surgery placed chest tube to decompress pneumothorax. peep decreased from 14 to 12. FiO2 100%. plan to start flolan today. She is tolerating her tube feeds at appropriate dose. Review of Systems Review of Systems: ROS unobtainable: Yes unobtainable due to endotracheal tube Exam Narrative: Exam Narrative: - GENERAL: Ill-appearing intubated, sedated woman - HENT: ETT in place - LUNGS: diminished lung sounds on ventilator, chest tube left side with bubbles for air leak - CARDIOVASCULAR: Regular rate and rhythm. No murmur. No JVD. - ABDOMEN: Soft, bowel sounds present - : nugent catheter in place - EXTREMITIES: No edema. Peripheral pulses 2+. Non-tender. - NEUROLOGIC: unable to assess intubated sedated - PSYCHIATRIC: unable to assess intubated sedated Objective Data Vital Signs Vital Signs: Vital Signs - 24 hr 09/14/20 18:00 09/14/20 18:28 09/14/20 1
[2020-09-15 18:28] LABS: Glucose Point of Care 204 (65-105)
[2020-09-15 19:48] LABS: Glucose Point of Care 205 (65-105)
[2020-09-15 20:49] LABS: Hemoglobin A1C 6.2 % (<5.7)
[2020-09-16] VITALS (39 sets, daily range): BP systolic 90–132; BP diastolic 52–76; PULSE 6–92; RESP 22–35; TEMP 36.8–38.9; O2SAT 88–100
[2020-09-16 00:07] LABS: Glucose Point of Care 209 (65-105)
[2020-09-16] MEDS: FENTANYL 2,500MCG/NS250ML(*CRX 2,500 MCG/250 ML BAG 17.5 MCG IV CONT (03:22)
[2020-09-16 04:58] LABS: Alveolar/Arterial O2 Gradient 527.4 mmHg; Base Excess ABG 4.2 mEq/l (+/-2.0); Carboxyhemoglobin 0.3 % THb (0-2.0); Fractional Inspired Oxygen 90 %; HCO3 ABG 28.6 mEq/l (22.0-26.0); Oxygen Content ABG 15.8 %vol (16.0-22.0); Oxyhemoglobin 94.1 % THb (90.0-100.0); PCO2 ABG 41.9 mmHg (35.0-45.0); PO2 ABG 71.4 mmHg (80.0-100.0); PO2 FiO2 Ratio Arterial Blood 0.79 %; Reduced Hemoglobin 5.6 %THb (0-5.0); Total Hemoglobin 11.9 g/dL (12.0-18.0); pH ABG 7.452 (7.350-7.450)
[2020-09-16 05:03] LABS: Device VENTILATOR; Modified Allen's Test Unable to perform; Site Drawn LEFT RADIAL
[2020-09-16 05:04] LABS: Arterial Blood Gas PEEP 12 cmH2O; Arterial Blood Gas Tidal Volume 400 ml; Arterial Blood Gas Vent Mode CMV; Arterial Blood Gas Ventilator rate 22 /MIN
[2020-09-16 06:30] LABS: Hematocrit 32.8 % (37.0-47.0); Hemoglobin 10.6 g/dL (12.0-15.0); Mean Corpuscular HGB Conc 32.3 g/dl (32-36); Mean Corpuscular Hemoglobin 29.6 pg (26-34); Mean Corpuscular Volume 91.6 fl (80-100); Platelet Count Result 287 k/mm3 (150-375); Red Blood Count 3.58 M/mm3 (4.2-5.4); White Blood Count 18.7 K/mm3 (4.5-10.0)
[2020-09-16 06:51] LABS: Alanine Aminotransferase 48 U/L (4-35); Albumin Level 2.9 g/dL (3.5-5.1); Alkaline Phosphatase 117 U/L (38-126); Anion Gap 5 mmol/L (8-16); Aspartate Amino Transferase 34 U/L (14-36); Bilirubin,Total 0.5 mg/dL (0.2-1.3); Blood Urea Nitrogen 34 mg/dL (7-17); Calcium 8.9 mg/dL (8.4-10.2); Carbon Dioxide 32 mmol/L (22-30); Chloride 98 mmol/L (98-107); Estimated CRCL calculation 106 ml/min; Estimated Glomerular Filt Rate > 60; Glucose 196 mg/dL (65-105); Magnesium 2.5 mg/dL (1.6-2.3); Potassium 5.2 mmol/L (3.4-5.0); Sodium 135 mmol/L (137-145)
[2020-09-16] MEDS: CENTRAL LINE FLUSH 10 ML IV PUSH ×3 (07:25→20:48)
--- NOTE | 2020-09-16 07:46 | PM.PNGS ---
Progress Note: A&P Assessment and Plan (1) Pneumothorax, left: Code(s): J93.9 - Pneumothorax, unspecified Status: Acute Assessment and Plan: Chest tube remains in good position. No pneumothorax. Continued problems with respiratory disease due to COVID-19. (2) Acute respiratory disease due to COVID-19 virus: Code(s): U07.1 - COVID-19; J06.9 - Acute upper respiratory infection, unspecified Status: Acute (3) Respiratory failure, acute: Qualifiers: Respiratory failure complication: hypoxia Qualified Code(s): J96.01 - Acute respiratory failure with hypoxia Code(s): J96.00 - Acute respiratory failure, unspecified whether with hypoxia or hypercapnia Status: Acute (4) Ventilator induced barotrauma: Code(s): T88.9XXA - Complication of surgical and medical care, unspecified, initial encounter Status: Acute Subjective Subjective Date/Time Seen: 09/16/20 07:46 Post Op day: 2 Patient reports: other (Remains on mechanical ventilator in intensive care unit.) Interval history: Had drop in sats earlier this morning but have improved again. Sedated and on mechanical ventilator Objective Data Vital Signs Vital Signs: Vital Signs - 24 hr 09/15/20 08:00 09/15/20 09:10 09/15/20 10:00 Temperature 36.8 C 37.0 C Pulse Rate 66 57 L 55 L Respiratory Rate 22 H 22 H Blood Pressure 109/74 106/68 Pulse Oximetry 95 94 93 09/15/20 10:59 09/15/20 12:00 09/15/20 14:00 Temperature 37.4 C 37.5 C Pulse Rate 57 L 62 60 Respiratory Rate 22 H 22 H Blood Pressure 108/69 121/74 Pulse Oximetry 94 93 96 09/15/20 14:15 09/15/20 14:33 09/15/20 16:00 Temperature 38.0 C H Pulse Rate 67 63 62 Respiratory Rate 28 H 22 H Blood Pressure 102/80 Pulse Oximetry 92 100 09/15/20 16:15 09/15/20 16:28 09/15/20 16:29 Temperature Pulse Rate 67 69 68 Respiratory Rate 27 H 24 H 25 H Blood Pressure Pulse Oximetry 09/15/20 17:26 09/15/20 18:00 09/15/20 18:40 Temperature 39.2 C H 39.2 C H Pulse Rate 71 74 Respiratory Rate 26 H Blood Pressure 131/75 Pulse Oximetry 94 96 09/15/20 19:10 09/15/20 20:00 09/15/20 21:44 Temperature 39.2 C H 38.5 C H Pulse Rate 71 61 Respiratory Rate 22 H 22 H Blood Pressure 100/67 Pulse Oximetry 98 93 09/15/20 22:00 09/16/20 00:00 09/16/20 00:08 Temperature 37.7 C H 37.2 C Pulse Rate 59 L 57 L 56 L Respiratory Rate 22 H 22 H Blood Pressure 103/53 L 107/64 Pulse Oximetry 95 100 95 09/16/20 02:00 09/16/20 03:07 09/16/20 03:22 Temperature 37.2 C Pulse Rate 57 L 60 61 Respiratory Rate 22 H 22 H Blood Pressure 102/64 Pulse Oximetry 100 90 09/16/20 04:00 09/16/20 04:26 09/16/20 06:00 Temperature 38.1 C H 38.9 C H Pulse Rate 64 66 69 Respiratory Rate 22 H 26 H Blood Pressure 113/61 132/76 Pulse Oximetry 92 94 88 L Intake/Output Intake/Output: Intake & Output 09/13/20 09/14/20 09/15/20 09/16/20 23:59 23:59 23:59 23:59 Intake Total 1561 1732.0 2483 900 Output Total 360 721 6446 750 Balance 986 1032.0 1408 150 Meds/Results Medications: Active Medications Generic Name Dose Route Start Last Admin Trade Name Freq PRN Reason Stop Dose Admin Albuterol 2.5 mg 09/11/20 12:54 Albuterol Sulfate Neb 2.5 Mg/0.5 Ml Inh INHALATION Q4HRT PRN Shortness Of Breath Ascorbic Acid 500 mg 09/07/20 09:00 09/15/20 09:48 Ascorbic Acid 500 Mg Tablet PO 500 mg DAILY DOLORES Administration Benzocaine 1 lozenge 09/10/20 10:40 Benzocaine/Menthol (*Bkc) 18 Ea Lozenge PO PRN PRN Sore Throat Dexamethasone Sodium Phosphate 6 mg 09/13/20 09:00 09/15/20 09:51 Dexamethasone Sod Phos Inj 4 Mg/Ml Vial IV PUSH 09/16/20 09:01 6 mg DAILY DOLORES Administration Dextrose 12.5 gm 09/12/20 01:30 Dextrose 50% 25 Gm/50 Ml Syringe IV PUSH PRN PRN Hypoglycemia Protocol Dornase Alireza 2.5 mg 09/13/20 08:00 09/15/20 21:41 Dornase Alireza Inh So
[2020-09-16] MEDS: FUROSEMIDE INJ 40 MG/4 ML VIAL IV PUSH (08:38)
[2020-09-16] MEDS: DEXAMETHASONE SOD PHOS INJ 4 MG/ML VIAL 6 MG IV PUSH (08:40)
[2020-09-16] MEDS: ENOXAPARIN 40 MG/0.4 ML SYRINGE SUB-Q ×2 (08:40→20:48)
[2020-09-16] MEDS: polyethylene glycoL 3350 17 GM POWD.PACK PO (08:40)
[2020-09-16] MEDS: ASCORBIC ACID 500 MG TABLET PO (08:40)
[2020-09-16] MEDS: CHOLECALCIFEROL 1,000 UNITS TABLET 4000 UNITS PO (08:40)
[2020-09-16] MEDS: ZINC SULFATE 220 MG CAPSULE PO (08:40)
[2020-09-16] MEDS: FAMOTIDINE 20 MG TABLET PO ×2 (08:40→20:48)
[2020-09-16] MEDS: ROCURONIUM BROMIDE 50 MG/5 ML VIAL (09:17)
[2020-09-16] MEDS: ALTEPLASE 2 MG VIAL (CATHFLO) IV PUSH (09:24)
[2020-09-16] MEDS: INSULIN ASPART (*BKC) 100 UNITS/ML SUB-Q ×3 (11:56→23:59)
--- NOTE | 2020-09-16 12:17 | PCDIET ---
Nutrition Follow-Up Complete: Altered nutrition related labs likely related to steroid use as evidenced by serum glucose of 274mg/dL. Patient to meet estimated nutritional needs. Goal: Pt current nutrition is Glucerna 1.2 at 40ml/hr. Nutrition recommendation: Recommend Vital HP at 50ml/hr for added protein due obese class 2 Last recorded weight is 87kg, holding steady 86.7kg, steady from Saturday (+150 I/O) Bowel Motility: Yesterday, miralax on board daily Labs Reviewed: Hgb/Hct 10.6, 32.8, WBC 18.7, protein 6.0, Albumin 2.9, Na 135, K 5.2, BUN 34, Cr. 50, Glucose 196, Mg 2.5 Meds Noted: Versed, Vitamin C, Miralax, Fentanyl, Lovenox, Vitamin D Additional Notes: Pt tolerating Glucerna 1.2 at goal of 40ml/hr providing 1056 kcals, 53g protein, and 708ml of free water over 22hrs. 10ml reidual this am. Agree with 30ml water flush q 4hrs at this time. Weight has been steady. If enteral nutrition continues, recommend formula change to Vital HP @ 50ml/hr to provide 1100 kcals and 96g protein vs 53g, to better meet protein needs and preserve lean body mass. Agree with vitamin/mineral supplements. Recommend Vitamin C be provided in IV for better absorption and utilization. Following daily in ICU rounds. Assessing/reassessing q t/f.
[2020-09-16 12:33] LABS: Glucose Point of Care 240 (65-105)
--- NOTE | 2020-09-16 13:53 | WPDINTPN ---
Progress Note: A&P Assessment and Plan (1) Acute respiratory disease due to COVID-19 virus: Code(s): U07.1 - COVID-19; J06.9 - Acute upper respiratory infection, unspecified Status: Acute Assessment and Plan: acute hypoxic respiratory failure secondary to COVID-19 SARS-CoV-2 PCR positive from [facility] 09/03/2020, Admitted 09/06, Air Vo 09/07, intubated 09/11 - patient tongued out her ET tube, patient was reintubated on 09/14/2020, as she was desaturated - in the early hours of 09/15/2020, patient was desaturating overnight, chest x-ray showed moderate pneumothorax, surgery was consulted inserted chest tube on the left side. Post chest tube x-ray showed resolution of the pneumothorax. - on 10/03/2020: Patient was desaturating, chest tube was in place on chest x-ray. no new pneumothorax was seen A chest x-ray. Placed patient on neuromuscular blockade with Nimbex infusion. Patient now with better O2 sats synchronous with the ventilator. - continue tidal volume strategy, is tidal volume 320, rate of 28, peep of 10, 90% FiO2 Patient is in Airborne, Droplet and Contact Isolation status post course of Remdesivir status post course of dexamethasone Convalescent plasma 1 unit given 09/07 with Lasix BNP unremarkable Monitor inflammatory markers Bronchodilators Pt is on zinc, vitamin c and d (2) Hyperlipidemia: Code(s): E78.5 - Hyperlipidemia, unspecified Status: Acute Assessment and Plan: hold statin due to elevated liver enzymes which are improving (3) Elevated liver enzymes: Code(s): R74.8 - Abnormal levels of other serum enzymes Status: Acute Assessment and Plan: most likely secondary to fatty liver from obesity Right upper quadrant ultrasound showed hepatic steatosis however enzymes have normalized, will continue to monitor (4) Leukocytosis: Qualifiers: Leukocytosis type: leukemoid reaction Qualified Code(s): D72.823 - Leukemoid reaction Code(s): D72.829 - Elevated white blood cell count, unspecified Status: Acute Assessment and Plan: likely secondary to steroids and stress response to pneumothorax, COVID-19 pneumonia improving, continue to monitor Additional Plan Diet: tolerating tube feeds DVT prophylaxis: intermediate does lovenox 40mg BID for COVID 19. Right upper extremity PICC line in place 09/14/2020 discussed with patient's daughter Chaim and updated her with patient's condition and plan of care. I answered all questions Code status: Full code. Total Critical Care Time - 33 minutes Due to a high probability of clinically significant, life threatening deterioration, the patient required my highest level of preparedness to intervene emergently and I personally spent this critical care time directly and personally managing the patient. This critical care time included obtaining a history; examining the patient; pulse oximetry; ordering and review of studies; arranging urgent treatment with development of a management plan; evaluation of patient's response to treatment; frequent reassessment; and discussions with other providers. It was exclusive of separately billable procedures and treating other patients and teaching time. Please see Assessment and Plan section and the rest of the note for further information on patient assessment and treatment Subjective Date/time seen: 09/16/20 13:53 Interval history: Petty Germain is a 55 year old female with past medical history hyperlipidemia and obesity presents to the ED with chief complaint of shortness of breath, fever. COVID-19 test positive 09/04/2020 from [facility]. Worsening oxygenation on the medical floor, was transfer the ICU where she was placed on BiPAP, failed BiPAP and was intubated on 09/11/2020. - received convalescent plasma on 09/07/2020 09/16/2020: Patient was desaturating this morning, was dyssynchronous with the ventilator, sedation was t
[2020-09-16 18:25] LABS: Glucose Point of Care 285 (65-105)
--- NOTE | 2020-09-16 19:47 | PM.IMPN ---
Progress Note: A&P Assessment and Plan (1) COVID-19: Code(s): U07.1 - COVID-19 Status: Acute (2) Respiratory failure, acute: Qualifiers: Respiratory failure complication: hypoxia Qualified Code(s): J96.01 - Acute respiratory failure with hypoxia Code(s): J96.00 - Acute respiratory failure, unspecified whether with hypoxia or hypercapnia Status: Acute Assessment and Plan: On mechanical ventilation, intubated 09/11, reintubated 09/14. (3) Obesity (BMI 30.0-34.9): Code(s): E66.9 - Obesity, unspecified Status: Chronic (4) Diabetes: Qualifiers: Diabetes mellitus type: type 2 Diabetes mellitus skilled nursing insulin use: without terminal superintendent use Diabetes mellitus complication status: without complication Qualified Code(s): E11.9 - Type 2 diabetes mellitus without complications Code(s): E11.9 - Type 2 diabetes mellitus without complications Status: Acute (5) Leukocytosis: Qualifiers: Leukocytosis type: leukemoid reaction Qualified Code(s): D72.823 - Leukemoid reaction Code(s): D72.829 - Elevated white blood cell count, unspecified Status: Acute Assessment and Plan: Likely secondary to dexamethasone and the underlying inflammatory response. (6) Pneumothorax, left: Code(s): J93.9 - Pneumothorax, unspecified Status: Acute (7) Ventilator induced barotrauma: Code(s): T88.9XXA - Complication of surgical and medical care, unspecified, initial encounter Status: Acute Additional Plan #COVID-19 pneumonia #acute hypoxic respiratory failure - positive test from [facility] 09/03/2020, continue isolation precautions - elevated inflammatory markers ferritin, LDH, crp - supplemental oxygen to keep oxygen saturation greater than 90% - completed Remdesivir, continue dexamethasone 6mg daily, convalescent plasma given 09/07 - intubated 09/11, reintubarted 09/14, chest tube placed overnight 09/15 by surgeon - peep down to 12 from 14, FiO2 100% - sedation: Fentanyl, Versed - paralytic: started nimbex 09/16- - starting Flolan 08/15 - MDI: albuterol - incentive spirometry - supplements zinc, vitamin c and d - started dornase #constipation -started miralax # left pneumothorax secondary to ventilator induced barotrauma -Dr. Bebeto Stanley placed chest tube last night with full re-expansion of left lung -Likely secondary to high peep of 14 and maybe underlying blebs -there is air leak in chest tube, unclear if there is nidus of air from the barotrauma with positive pressure pushing more air into pleural cavity # hyperglycemia #obesity BMI 34.6 -Checking hemoglobin A1c, likely increased blood sugars due to steroids -sliding-scale insulin coverage moderate dose Diet: tube feeds started DVT prophylaxis: Lovenox 40mg BID for COVID 19 GI prophylaxis: pepcid Code status: Full code Disposition: ICU Subjective Date/time seen: 09/16/20 19:47 patient examined. She was having desaturations need to be started on Nimbex drip for paralytics since she was desaturating. left chest tube in place. Tolerating tube feeds, bowel sounds present. Tmax 102.1 Discussed with grounds crew supervisor. Review of Systems Review of Systems: ROS unobtainable: Yes unobtainable due to endotracheal tube Exam Narrative: Exam Narrative: - GENERAL: Ill-appearing intubated, sedated, paralyzed woman - HENT: ETT in place - LUNGS: diminished lung sounds on ventilator, chest tube left side - CARDIOVASCULAR: Regular rate and rhythm. No murmur. No JVD. - ABDOMEN: Soft, bowel sounds present - : nugent catheter in place - EXTREMITIES: No edema. Peripheral pulses 2+. Non-tender. - NEUROLOGIC: unable to assess intubated sedated - PSYCHIATRIC: unable to assess intubated sedated Objective Data Vital Signs Vital Signs: Vital Signs - 24 hr 09/15/20 20:00 09/15/20 21:44 09/15/20 22:00 Temperature 38.5 C H 37.7 C H Pulse Rate 71 61 59 L Respira
[2020-09-16] MEDS: DORNASE ALFA INH SOLN 1 MG/ML 2.5 ML AMP 2.5 MG INHALATION (20:25)
[2020-09-16] MEDS: FENTANYL 2,500MCG/NS250ML(*CRX 2,500 MCG/250 ML BAG 15 MCG IV CONT (20:48)
[2020-09-17] VITALS: BP 129/74; PULSE 56; PULSE 58; RESP 28; TEMP 37.1; O2SAT 94
[2020-09-17 01:07] LABS: Glucose Point of Care 260 (65-105)
[2020-09-17 02:00] VITALS: BP 103/66; PULSE 59; RESP 28; TEMP 37.3; O2SAT 89
[2020-09-17 02:22] VITALS: PULSE 55; RESP 28
[2020-09-17 02:33] VITALS: PULSE 55; RESP 28
[2020-09-17 03:55] LABS: Base Excess ABG 5.3 mEq/l (+/-2.0); Carboxyhemoglobin 0.4 % THb (0-2.0); Fractional Inspired Oxygen 100 %; HCO3 ABG 30.9 mEq/l (22.0-26.0); Methemoglobin ABG 0.1 %THb (0-1.5); Oxygen Content ABG 14.3 %vol (16.0-22.0); Oxygen Saturation ABG 87.5 % (95.0-100.0); Oxyhemoglobin 85.2 % THb (90.0-100.0); PCO2 ABG 49.8 mmHg (35.0-45.0); PO2 ABG 53.2 mmHg (80.0-100.0); PO2 FiO2 Ratio Arterial Blood 0.53 %; Reduced Hemoglobin 14.3 %THb (0-5.0); Total Hemoglobin 11.9 g/dL (12.0-18.0); pH ABG 7.411 (7.350-7.450)
[2020-09-17 03:56] LABS: Arterial Blood Gas Vent Mode CMV; Arterial Blood Gas Ventilator rate 28 /MIN; Device VENTILATOR; Modified Allen's Test Pass; Site Drawn LEFT RADIAL
[2020-09-17 03:57] LABS: Arterial Blood Gas PEEP 10 cmH2O; Arterial Blood Gas Tidal Volume 320 ml
[2020-09-17 04:00] VITALS: PULSE 57; PULSE 71; RESP 19; TEMP 37.9; O2SAT 69
[2020-09-17 05:48] LABS: Alveolar/Arterial O2 Gradient 604.9 mmHg; Base Excess ABG -12.5 mEq/l (+/-2.0); Fractional Inspired Oxygen 100 %; HCO3 ABG 19.1 mEq/l (22.0-26.0); Oxygen Content ABG 3.8 %vol (16.0-22.0); Oxyhemoglobin 26.1 % THb (90.0-100.0); PO2 FiO2 Ratio Arterial Blood 0.29 %; Total Hemoglobin 10.2 g/dL (12.0-18.0)
[2020-09-17 05:50] LABS: Device AMBU BAG; Site Drawn LEFT FEMORAL
--- NOTE | 2020-09-17 05:52 | PM.PNGS ---
Progress Note: A&P Assessment and Plan (1) Pneumothorax, left: Code(s): J93.9 - Pneumothorax, unspecified Status: Acute Assessment and Plan: CXR's reviewed, new chest tube appears to be in place and functioning. Patient has multiple other factors leading to her current condition and remains hypoxic despite best efforts. Continue current treatment per CCP. Not sure if she is going to stabilize this AM after multiple codes. (2) Ventilator induced barotrauma: Code(s): T88.9XXA - Complication of surgical and medical care, unspecified, initial encounter Status: Acute (3) Acute respiratory disease due to COVID-19 virus: Code(s): U07.1 - COVID-19; J06.9 - Acute upper respiratory infection, unspecified Status: Acute (4) COVID-19: Code(s): U07.1 - COVID-19 Status: Acute Subjective Subjective Date/Time Seen: 09/17/20 05:52 I was called at 4:15 AM due to patient having worsening respriratory issues. She was hypoxic and difficult to bag. Stat CXR showed worsening left pneumothorax. I came in to place another chest tube, but she coded and ED physician was able to place another chest tube. Post chest tube CXR shows lung re-expanded. She has air leak evident at both chest tubes now and is still having to be bagged to be ventilated. She has coded multiple times. Exam Resp: Other: Coarse breath sounds auscultated bilaterally Two left sided chest tubes in place to -20 cmH2O. Both have air leak with minimal serosanguinous drainage Objective Data Vital Signs Vital Signs: Vital Signs - 24 hr 09/16/20 06:00 09/16/20 08:00 09/16/20 09:15 Temperature 38.9 C H 38.3 C H Pulse Rate 69 68 75 Respiratory Rate 26 H 25 H 35 H Blood Pressure 132/76 118/65 Pulse Oximetry 88 L 94 09/16/20 09:22 09/16/20 09:55 09/16/20 10:00 Temperature 37.9 C H Pulse Rate 92 88 86 Respiratory Rate 29 H 28 H Blood Pressure 108/68 113/61 Pulse Oximetry 91 93 09/16/20 10:06 09/16/20 11:00 09/16/20 11:15 Temperature Pulse Rate 85 82 84 Respiratory Rate 28 H Blood Pressure Pulse Oximetry 92 92 09/16/20 11:59 09/16/20 12:00 09/16/20 12:03 Temperature 37.5 C Pulse Rate 73 73 73 Respiratory Rate 28 H 28 H 28 H Blood Pressure 90/55 L 90/55 L Pulse Oximetry 94 09/16/20 13:21 09/16/20 13:22 09/16/20 13:23 Temperature Pulse Rate 70 70 70 Respiratory Rate 28 H 28 H 28 H Blood Pressure 98/59 L Pulse Oximetry 09/16/20 14:00 09/16/20 14:08 09/16/20 14:10 Temperature 37.1 C Pulse Rate 64 6 L 65 Respiratory Rate 28 H 28 H Blood Pressure 107/64 Pulse Oximetry 100 99 09/16/20 15:49 09/16/20 15:56 09/16/20 16:00 Temperature 36.9 C Pulse Rate 65 66 63 Respiratory Rate 28 H 28 H 28 H Blood Pressure 107/59 L 101/71 Pulse Oximetry 98 09/16/20 17:08 09/16/20 17:23 09/16/20 17:26 Temperature Pulse Rate 59 L 58 L 58 L Respiratory Rate 28 H 28 H Blood Pressure 108/60 Pulse Oximetry 99 09/16/20 18:00 09/16/20 20:00 09/16/20 20:26 Temperature 36.8 C 36.9 C Pulse Rate 60 59 L 56 L Respiratory Rate 28 H 28 H 28 H Blood Pressure 107/59 L 118/67 Pulse Oximetry 95 92 09/16/20 20:28 09/16/20 20:40 09/16/20 20:48 Temperature Pulse Rate 57 L 55 L 57 L Respiratory Rate 28 H 28 H Blood Pressure Pulse Oximetry 97 09/16/20 22:00 09/16/20 23:34 09/17/20 00:00 Temperature 37.1 C 37.1 C Pulse Rate 57 L 56 L 56 L Respiratory Rate 28 H 28 H Blood Pressure 112/52 L 129/74 Pulse Oximetry 94 93 94 09/17/20 02:00 09/17/20 02:22 09/17/20 02:33 Temperature 37.3 C Pulse Rate 59 L 55 L 55 L Respiratory Rate 28 H 28 H 28 H Blood Pressure 103/66 Pulse Oximetry 89 L Intake/Output Intake/Output: Intake & Output 09/14/20 09/15/20 09/16/20 09/17/20 23:59 23:59 23:59 23:59 Intake Total 1732.0 2483 2929 90 Output Total 700 1075 2406 700 Balance 1032.0 1408 523 -610 Meds/Results Medications: Acti
[2020-09-17 06:20] LABS: Glucose Point of Care 331 (65-105)
--- NOTE | 2020-09-17 07:53 | PM.DDS ---
Discharge Sum: Prov Provider Primary care physician: [facility] Admitting provider: Leidy Walter MD Consults: 09/07/20 Consult to Physician Routine Comment: Consulting Provider: Agustín Sequeira Reason for consultation: ICU Has provider been notified: Yes 09/15/20 Consult to Physician Routine Comment: Consulting Provider: Bebeto Stanley rn call center/MD group to consult: Dr. Stanley Reason for consultation: left pneumothorax Has provider been notified: Yes Discharge Sum: Diag PCOD COVID-19, pneumothorax from ventilator induced barotrauma Contributing Factors (1) COVID-19: (2) Ventilator induced barotrauma: (3) Pneumothorax, left: (4) Acute respiratory disease due to COVID-19 virus: Discharge Sum: Summary Date and Time Date of admission: 09/06/20 17:33 Date of : 09/17/20 Time of : 06:05 Summary Details: Patient is a 55-year-old female with past medical history of hyperlipidemia and obesity presents to ED with complaints of the shortness of breath. she was diagnosed with COVID-19 on 09/04/2020 at [facility]. She tried to manage at home with Tylenol ibuprofen and developed progressive dyspnea bringing her to the hospital. She quickly decompensated and completed course of Remdesivir, continued on dexamethasone, convalescent plasma 09/07/2020. She was intubated on 09/11 for respiratory failure, reintubated on 09/14 when she tongued the ET tube out. 09/16 She developed a left-sided pneumothorax from ventilator induced barotrauma with peep 14. Chest tube was placed by surgeon. she was then paralyzed with Nimbex for dyssynchrony with the ventilator and hypoxia. 09/17 4:00 a.m. she developed worsening respiratory issues chest x-ray showed worsening left pneumothorax, 2nd chest tube was placed and she had code blue. Post chest chest x-ray showed lung reexpansion they were air leaks in both chest tubes. She had been coded multiple times afterward and eventually . Time of 6:05 a.m. on 09/17/2020. Cause of pneumothorax secondary to ventilator induced barotrauma from hypoxia from COVID-19. Additional Data Confirmation of as documented by pronouncing clinician: no pulse, no respirations, no heart sounds, pupils fixed and dilated and other Family: contacted Attending/PCP notified?: No Attending physician: Tavo Morgan DO Was code activated?: Yes Autopsy requested?: No Hospice patient?: No
--- NOTE | 2020-09-17 08:14 | P.CODEBLUE_ITS ---
Code Blue Note Code Blue Note Time Arrived at Code Blue: 6:05 Initial Rhythm on Arrival: PEA Airway Management: Ventilator Chest Compressions: Present Result of Code Blue: Pt Cardiac Rhythm Post Code: Asystole Code Blue Summary: Patient had very eventful night. Patient on ventilator but sa turation was low, chest xr showed pneumothorax on the L side. Chest tube was placed in. Patient went into PEA was resuscitated ROSC was achieved but patient could not maintain status. Patient was coded multiple times. Daughter was called over the phone and all resuscitative efforts were exhausted
--- NOTE | 2020-09-17 09:41 | PC.NURSE ---
09/17/20: Earlier in this shift around 0400 this nurse noticed patient's oxygen saturation decreased. RT called. RT began to oxygenate patient with bag-valve mask with no improvement in oxygenation. Casing Mixer and Hospitalist notified. Hospitalist arrived to bedside and CXR obtained. Dr Tovar called and notified of CXR results and worsening of pneumothorax. supervisor electrolytic tinning made aware. Dr Tovar stated he would arrive to hospital in 45 minutes. Patient continued to decompensate and a code blue was called. ED physician arrived to bedside and placed an additional chest tube. Multiple rounds of chest compressions and epinephrine were given : see code reference sheet for details of medication administration. Dr. Tovar arrived and assessed new chest tube placement. Communication with daughter was provided throughout entire event. Time of was called by Hospitalist at 0605.
[2020-09-19 09:37] LABS: PCO2 ABG 79.4 mmHg (35.0-45.0)
[2020-09-19 09:38] LABS: Oxygen Saturation ABG 30.1 % (95.0-100.0); PO2 ABG 28.7 mmHg (80.0-100.0)
== END 2020-09-17 06:05 | disposition expired | DRG 207 ==
LOC: ANHED 16:52 → ANH3MEDSUR 22:11 → ANHICU 09-08 16:54 → ANH3MEDSUR 09-19 15:30 → ANHICU 09-19 15:30
PROVIDERS: Emergency Medicine; Family Medicine; General Practice; Internal Medicine; Student in an Organized Health Care Education/Training Program; Admitting Provider Family Medicine; Emergency Provider Emergency Medicine; Visit Provider Internal Medicine
DX: U07.1 COVID-19 (principal); J12.89 Other viral pneumonia; J96.01 Acute respiratory failure with hypoxia; J95.859 Other complication of respirator [ventilator]; J95.89 Other postprocedural complications and disorders of respiratory system, not elsewhere classified; T88.8XXA Other specified complications of surgical and medical care, not elsewhere classified, initial encounter; Y84.8 Other medical procedures as the cause of abnormal reaction of the patient, or of later complication, without mention of misadventure at the time of the procedure; I46.8 Cardiac arrest due to other underlying condition; E78.5 Hyperlipidemia, unspecified; K76.0 Fatty (change of) liver, not elsewhere classified; E66.9 Obesity, unspecified; Z68.35 Body mass index [BMI] 35.0-35.9, adult; D72.829 Elevated white blood cell count, unspecified; T38.0X5A Adverse effect of glucocorticoids and synthetic analogues, initial encounter; R73.9 Hyperglycemia, unspecified
CPT/HCPCS: 31500; 36415; 36430; 36569; 36600; 71045; 76705; 80048; 80053; 82375; 82728; 82805; 83036; 83050; 83605; 83615; 83735; 83880; 84100; 84460; 84484; 85025; 85027; 85380; 85610; 85730; 86140; 86900; 86901; 87040; 87070; 87077; 87086; 87088; 87186; 87205; 92950; 93005; 94002; 94003; 94640; 96374; 99285; A9270; C1729; C1751; J0131; J0171; J0330; J1100; J1650; J1741; J1815; J1940; J2060; J2250; J2704; J2997; J3010; J7030; J7040; J7050; J7060; J8540; P9059